=== PATIENT | male | born 1950 | race Two or more races ===

== ENCOUNTER 2019-05-12 22:34 | Inpatient (IN) | payer MEDICARE ==
[~2019-05-12] VITALS: Ht 172.7 cm; Wt 69.9 kg
[2019-05-12 22:40] VITALS: BP 118/64
--- NOTE | 2019-05-12 22:40 | NUR ---
ED Nurse Note: Pt brought into ED by GERARD PASTRANA from home for ALOC. Pt was found at his friends house unresponsive with oxygen saturation at 73% on RA. EMS notes BS of 275 on scene. Pt was arousable to painful stimuli on scene. Pt is aaox3 upon ED arrival and oxygen saturation is 96% on nonrebreather. Pt is able to answer questions, but is drowsy. Pt connected to bus monitor. Will continue to monitor.
[2019-05-12] MEDS ORDERED: Ipratropium 0.02% Inh Soln 2.5ml UD HHN ONE (22:45)
[2019-05-12] MEDS ORDERED: Albuterol ud Inhalation HHN ONE (22:45)
[2019-05-12 23:13] LABS: BASOPHILS % (AUTO) 4.9 % (0.0-2.0); EOSINOPHILS % (AUTO) 1.1 % (0.0-3.0); HEMATOCRIT 48.9 % (42.0-52.0); HEMOGLOBIN 15.6 G/DL (14.2-18.0); LYMPHOCYTES % (AUTO) 25.3 % (20.0-45.0); MEAN CORPUSCULAR VOLUME 93 FL (80-99); MONOCYTES % (AUTO) 6.4 % (1.0-10.0); NEUTROPHILS % (AUTO) 62.3 % (45.0-75.0); PLATELET COUNT 194 K/UL (150-450); RED BLOOD COUNT 5.28 M/UL (4.70-6.10); RED CELL DISTRIBUTION WIDTH 13.4 % (11.6-14.8); WHITE BLOOD COUNT 4.5 K/UL (4.8-10.8)
[2019-05-12 23:25] VITALS: BP 130/42
[2019-05-12 23:29] LABS: ANION GAP 15 mmol/L (5-15); BLOOD UREA NITROGEN 35 mg/dL (7-18); CALCIUM 9.3 MG/DL (8.5-10.1); CARBON DIOXIDE 23 MMOL/L (21-32); CHLORIDE 102 MMOL/L (98-107); CREATININE 2.2 MG/DL (0.55-1.30); POTASSIUM 4.2 MMOL/L (3.5-5.1); SODIUM 140 MMOL/L (136-145)
[2019-05-12 23:40] LABS: ALANINE AMINOTRANSFERASE 21 U/L (12-78); ALBUMIN 3.6 G/DL (3.4-5.0); ALBUMIN/GLOBULIN RATIO 0.9 (1.0-2.7); ALKALINE PHOSPHATASE 97 U/L (46-116); ASPARTATE AMINO TRANSFERASE 14 U/L (15-37); BILIRUBIN,TOTAL 0.2 MG/DL (0.2-1.0)
[2019-05-13] VITALS (7 sets, daily range): BP systolic 119–149; BP diastolic 57–82
--- NOTE | 2019-05-13 00:15 | NUR ---
ED Nurse Note: Pt taken off nonrebreather at this time, vital signs are stable. Pt oxygen saturation is 98-100% on RA. Will continue to monitor respiratory status. Breathing is normal and nonlabored.
[2019-05-13] MEDS ORDERED: Enoxaparin 80mg Inj SUBQ ONE (00:30)
[2019-05-13 00:34] LABS: APPEARANCE,URINE CLEAR; BILIRUBIN, URINE NEGATIVE (NEGATIVE); COLOR,URINE PALE YELLOW; GLUCOSE, URINE (UA) 2+ (NEGATIVE); KETONES,URINE NEGATIVE (NEGATIVE); LEUKOCYTE ESTERASE ,URINE 1+ (NEGATIVE); NITRITE,URINE NEGATIVE (NEGATIVE); PH,URINE 5 (4.5-8.0); PROTEIN,URINE 3+ (NEGATIVE); UROBILINOGEN,URINE NORMAL MG/DL (0.0-1.0)
--- NOTE | 2019-05-13 00:53 | Emergency Room Report ---
History of Present Illness General Chief Complaint: Altered Mental Status Source: Patient, EMS Present Illness HPI Is a 68-year-old male with a history of CVA and diabetes. He presents with chief complaint of altered mental status and hypoxia. He was at his friend's house and said he had 1 alcoholic drink. He became unresponsive and friend called 911. EMS said that he was unresponsive and by the time they get into the ambulance, he woke up. There was no seizure activity. He was noted to be hypoxic. Patient denies being short of breath. Denies any chest pain. No history of seizure. Never had this problem before. He was unresponsive for unknown amount of time. Allergies: 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 Immunizations: other Reviewed Nursing Documentation: PMH: Agreed; PSxH: Agreed Nursing Documentation-PMH Hx Diabetes: Yes Hx Cerebrovascular Accident: Yes Review of Systems Eye: Denies: eye pain, blurred vision ENT: Denies: ear pain, nose congestion, throat swelling Respiratory: Denies: cough, shortness of breath Cardiovascular: Denies: chest pain, palpitations Gastrointestinal: Denies: abdominal pain, diarrhea, nausea, vomiting Musculoskeletal: Denies: back pain, joint pain Skin: Denies: rash Neurological: Denies: headache, numbness Endocrine: Denies: increased thirst, increased urine Hematologic/Lymphatic: Denies: easy bruising All Other Systems: negative except mentioned in HPI Physical Exam Vital Signs Date Time Temp Pulse Resp B/P (MAP) Pulse Ox O2 Delivery O2 Flow Rate FiO2 05/12/19 22:35 98.2 72 20 118/64 (82) 96 Room Air 05/12/19 22:40 15.0 05/12/19 23:04 100 Vitals with hypoxia Sp02 EP Interpretation: reviewed, normal General Appearance: well appearing, no apparent distress, alert Head: normocephalic, atraumatic Eyes: bilateral eye PERRL, bilateral eye EOMI ENT: hearing grossly normal, normal pharynx Neck: full range of motion, supple, no meningismus Respiratory: chest non-tender, lungs clear, normal breath sounds Cardiovascular #1: regular rate, rhythm, no murmur Gastrointestinal: normal bowel sounds, non tender, no mass, no organomegaly, no bruit, non-distended Musculoskeletal: back normal, normal range of motion, gait/station normal Neurologic: alert, oriented x3 Psychiatric: mood/affect normal Procedures Critical Care Time Critical Care Time Critical care is mandated in this patient who presented with acute respiratory failure. Patient require my urgent intervention to attenuate the risks of respiratory collapse which may lead to cardiovascular collapse and . Critical care time is 35 minutes excluding any reportable procedure. Critical care time included evaluation, multiple reevaluation, looking at old charts, interpreting laboratory and diagnostic data, discussing case with patient and family and consultants, and charting. Medical Decision Making Diagnostic Impression: Primary Impression: Altered mental status Qualified Codes: R41.82 - Altered mental status, unspecified Additional Impressions: Acute respiratory failure with hypoxia Hypertension Qualified Codes: I10 - Essential (primary) hypertension CKD (chronic kidney disease) Qualified Codes: N18.9 - Chronic kidney disease, unspecified ER Course Presents with acute respiratory failure with hypoxia. He also was unresponsive on amount of time. He is back to baseline now. He has had a seizure, TIA/CVA, CO2 necrosis to name a few. He has been off of oxygen for the last hour and room air oxygenation has been 98 to 99%. Labs unremarkable. Chest x-ray is negative. CT head is negative. His creatinine is elevated. This preclude him from getting a CT chest to rule out PE. I gave him a dose of Lovenox here. He may have further work-up with a VQ scan in the morning. Patient is approved for admission here. I contacted Dr. Tse for admission. EKG Diagnostic Results Rate: normal Rhythm: NSR ST Segments: no acute changes Rhythm Strip Diag. Results EP Interpretation: yes Rate: 68 Rhythm: NSR, no PVC's, no ectopy Chest X-Ray Diagnostic Results Chest X-Ray Diagnostic Results : Chest X-Ray Ordered: Yes # of Views/Limited/Complete: 1 View Indication: Shortness of Breath EP Interpretation: Yes Interpretation: no consolidation, no effusion, no pneumothorax, no acute cardiopulmonary disease Impression: No acute disease Electronically Signed by: Nicola Peterson MD CT/MRI/US Diagnostic Results CT/MRI/US Diagnostic Results : Imaging Test Ordered: CT head Impression Negative per radiologist Last Vital Signs Date Time Temp Pulse Resp B/P (MAP) Pulse Ox O2 Delivery O2 Flow Rate FiO2 05/12/19 23:25 98.2 73 16 130/42 100 Non-Rebreather 15.0 100 Status: improved Disposition: ADMITTED INPATIENT Condition: Serious Referrals: NOT CHOSEN IPA/,REFERRING (PCP) Nicola Peterson MD May 13, 2019 00:53
--- NOTE | 2019-05-13 02:30 | NUR ---
ED Nurse Note: Report given to SHAHRAM Allan.
--- NOTE | 2019-05-13 02:41 | NUR ---
ED Nurse Note: Pt stable for transfer to unit at this time per ERMD. Pt is awake and alertx4, breathing is normal and unlabored, oxygen saturation is 99% on RA. No acute distress noted. Pt taken to floor via gurney by 2 RN, connected to air sampling and monitoring. Pt belongings sent with pt.
--- NOTE | 2019-05-13 02:45 | NUR ---
NURSE NOTES: Receieved report from Sonali RN. Patient is alert oriented x 4. No signs of distress. No SOB noted. Able to verbalize needs. R FA 22g SL.
--- NOTE | 2019-05-13 03:02 | Diagnostic Imaging Report ---
Indications: Altered mental status Technique: Spiral acquisitions obtained through the brain. Angled axial and coronal 5 x 5 mm slices were reconstructed. Total dose length product 1179 mGycm. CTDI vol(s) 53 mGy. Dose reduction achieved using automated exposure control Comparison: None. Findings: There is age-related enlargement of the ventricles. The extra-axial CSF spaces are more normal in caliber. There is periventricular deep white matter low-attenuation. Otherwise normal lai-white differentiation. There is an old lacunar infarct in the right side of the panda. No acute intracranial hemorrhage or edema. No mass effect nor midline shift. The calvarium is intact. The visualized orbits and sinuses are unremarkable. Impression: Ventriculomegaly, probably due to central volume loss. However this is out of proportion to the degree of cortical atrophy, the possibility of hydrocephalus should also be considered Periventricular deep white matter low-attenuation, probably due to chronic microvascular ischemic changes, but could also indicate transependymal flow of CSF in the setting of hydrocephalus Old right pontine lacunar infarct Negative for acute intracranial bleed or mass effect This agrees with the preliminary interpretation provided overnight by [facility]erad[facility] service. The CT scanner at [facility] is accredited by the [employer] and the scans are performed using protocols designed to limit radiation exposure to as low as reasonably achievable to attain images of sufficient resolution adequate for diagnostic evaluation.
--- NOTE | 2019-05-13 03:20 | NUR ---
NURSE NOTES: Called and left message for Dr. Laguerre. Awaiting for call back. Will continue to monitor patient
[2019-05-13] MEDS ORDERED: [UNRECOGNIZED DRUG - OTHER] (03:23)
[2019-05-13] MEDS ORDERED: vitamin D (03:23)
[2019-05-13] MEDS ORDERED: BENAZEPRIL (03:23)
[2019-05-13] MEDS ORDERED: magnesium (03:23)
[2019-05-13] MEDS ORDERED: vitamin e (03:23)
--- NOTE | 2019-05-13 04:27 | NUR ---
NURSE NOTES: Called and left message for Dr. Laguerre. Awaiting for call back. Will continue to monitor patient.
--- NOTE | 2019-05-13 04:50 | NUR ---
NURSE NOTES: Received new orders. Will note and carry out.
[2019-05-13 06:05] LABS: BASOPHILS % (AUTO) 0.7 % (0.0-2.0); HEMATOCRIT 43.5 % (42.0-52.0); HEMOGLOBIN 14.8 G/DL (14.2-18.0); LYMPHOCYTES % (AUTO) 12.2 % (20.0-45.0); MEAN CORPUSCULAR VOLUME 91 FL (80-99); MONOCYTES % (AUTO) 4.5 % (1.0-10.0); NEUTROPHILS % (AUTO) 81.5 % (45.0-75.0); PLATELET COUNT 163 K/UL (150-450); RED CELL DISTRIBUTION WIDTH 12.2 % (11.6-14.8); WHITE BLOOD COUNT 11.6 K/UL (4.8-10.8)
[2019-05-13 06:15] LABS: ANION GAP 7 mmol/L (5-15); BLOOD UREA NITROGEN 32 mg/dL (7-18); CALCIUM 9.3 MG/DL (8.5-10.1); CARBON DIOXIDE 29 MMOL/L (21-32); CHLORIDE 105 MMOL/L (98-107); POTASSIUM 5.1 MMOL/L (3.5-5.1); SODIUM 140 MMOL/L (136-145)
--- NOTE | 2019-05-13 07:05 | NUR ---
HAND-OFF: Report given to Tan Guerra Pt in stable conditon.
--- NOTE | 2019-05-13 07:19 | NUR ---
RADIOLOGY DEPT., LATE ENTRY. CHEST X-RAY DONE 05/12 AT 22:43HRS. -.P.DYE
--- NOTE | 2019-05-13 08:19 | NUR ---
NURSE NOTES: received pt in the bed, awake, alert, oriented, vital signs stable, no co pain, no SOB, skin warm and dry to touch, intact, tolerate diet well, bed in low position, call light within reach.
[2019-05-13] MEDS: Enoxaparin 40mg Inj SUBQ SCH (08:53)
--- NOTE | 2019-05-13 09:10 | Diagnostic Imaging Report ---
Indication: Shortness of breath Technique: One view of the chest Comparison: none Findings: Lungs and pleural spaces are clear. Heart size is normal. Impression: No acute process
--- NOTE | 2019-05-13 11:03 | NUR ---
NM Lung V/Q scan complete.
[2019-05-13] MEDS: NovoLOG Insulin Flexpen SUBQ SCH ×3 (11:30→21:07)
--- NOTE | 2019-05-13 12:07 | NUR ---
NURSE NOTES: pt resting, VQ scan done, vital signs stable, no co pain, continue monitoring.
[2019-05-13] MEDS: HYDROcodone/Acetamin 5/325 tab ORAL PRN (13:49)
--- NOTE | 2019-05-13 13:59 | NUR ---
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 98.2 HR 72 RR 20 B/P 118/64 NRM FIO2 100% WBC 4.5 BUN 35 CR 2.2 BNP 245 PH 7.28 PCO2 43.5 PO2 57.7 HCO3 20.1 O2 SAT 86.6% URINE TOX+ THC CT- NEGATIVE IS: ALB HHN ATROVENT HHN LOVENOX SUBC ADMITTED TO ICU@ 0241 ICU STATUS DCP PENDING HOSPITAL
--- NOTE | 2019-05-13 14:35 | Consultation ---
Consult Note Consult Note I was asked to evaluate Mr. Leticia Lindsey at the request of Dr. Tse for elevated creatinine. Patient is a 68-year-old male with a history of previous CVA and history of diabetes mellitus who presents to our emergency room here at [facility] with altered level of consciousness and hypoxia. After initial evaluation the patient was admitted for above problem. I visited the patient in his room in [address]. On questioning the patient he denied having episodes as such in the past. Denies any chest pain seizure disorder. Allergies are negative. Past history is significant for stroke and diabetes mellitus. On examination vital signs stable patient alert and oriented and responds to all the questions appropriately. Data reviewed. Serum creatinine is elevated and the patient has alcohol and THC in the urine. . Assessment/Plan Acute encephalopathy is most likely metabolic due to marijuana and alcohol. Elevated creatinine most likely chronic kidney disease as a result of history of hypertension and diabetes mellitus. Acute respiratory failure with hypoxia on presentation to emergency room. CO2 retention DM Proteinuria: Nephropathy. Optimize pulmonary status Keep BP and BS in check Avoid nephrotoxics per orders Jose Luis Lin MD May 13, 2019 14:35
--- NOTE | 2019-05-13 14:42 | History & Physical ---
History of Present Illness General Reason for Hospitalization: Altered Mental Status Present Illness Allergies: Coded Allergies: No Known Allergies (Unverified , 05/12/19) Medication History Miscellaneous Medications [benazopril], (Reported) [magnesium], (Reported) [propra], (Reported) [vitamin D], (Reported) [vitamin e], (Reported) Patient History Healthcare decision maker Resuscitation status Full Code Advanced Directive on File Review of Systems Review of Symptoms General ROS: no weight loss or fever Psychological ROS: no depression or mood changes, no memory loss Ophthalmic ROS: no visual changes or eye irritation ENT ROS: no nasal congestion, hearing loss, dizziness Allergy and Immunology ROS: no allergic symptoms or urticaria Hematological and Lymphatic ROS: no swollen glands, unusual bleeding or bruising Endocrine ROS: no polyuria, polydipsia, weight changes, temperature intolerance Respiratory ROS: no cough, shortness of breath, or wheezing Cardiovascular ROS: no chest pain or dyspnea on exertion Gastrointestinal ROS: denies abdominal pain, bright red blood in stool. Musculoskeletal ROS: no myalgias or arthralgias Neurological ROS: no TIA or stroke symptoms Dermatological ROS: no new or changing skin lesions, rashes or pruritis Physical Exam Physical Exam General appearance: alert, cooperative, no distress, appears stated age Head: Normocephalic, without obvious abnormality, atraumatic Eyes: conjunctivae/corneas clear. PERRL, EOM's intact. Fundi benign Throat: Lips, mucosa, and tongue normal. Teeth and gums normal Neck: supple, symmetrical, trachea midline, no adenopathy, thyroid: not enlarged, symmetric, no tenderness/mass/nodules, no carotid bruit and no JVD Lungs: clear to auscultation bilaterally Heart: regular rate and rhythm, S1, S2 normal, no murmur, click, rub or gallop Abdomen: soft, non-tender. Bowel sounds normal. No masses, no organomegaly Extremities: extremities normal, atraumatic, no cyanosis or edema Pulses: 2+ and symmetric Skin: Skin color, texture, turgor normal. No rashes or lesions Neurologic: Grossly normal Last 24 Hour Vital Signs Date Time Temp Pulse Resp B/P (MAP) Pulse Ox O2 Delivery O2 Flow Rate FiO2 05/13/19 14:19 98.5 05/13/19 12:00 98.5 57 16 132/76 (94) 99 05/13/19 11:27 54 05/13/19 09:00 Room Air 05/13/19 08:00 98.1 77 16 119/57 (77) 98 05/13/19 08:00 69 05/13/19 04:30 Room Air 05/13/19 04:10 Room Air 05/13/19 04:00 98.2 60 139/73 (95) 05/13/19 03:26 79 05/13/19 03:10 98.0 77 138/76 (96) 05/13/19 02:57 81 05/13/19 02:41 98.5 75 16 135/66 99 Room Air 05/13/19 00:15 98.2 70 16 144/60 100 Room Air 05/12/19 23:25 98.2 73 16 130/42 100 Non-Rebreather 15.0 100 05/12/19 23:04 69 21 97 Non-Rebreather 15.0 100 66 25 96 05/12/19 22:40 72 20 Non-Rebreather 15.0 05/12/19 22:40 98.2 72 20 118/64 96 Non-Rebreather 15.0 05/12/19 22:35 98.2 72 20 118/64 (82) 96 Room Air Intake and Output 05/12/19 05/13/19 19:00 07:00 Intake Total 30 ml Balance 30 ml Intake Oral 30 ml Laboratory Tests Test 05/12/19 22:43 05/12/19 23:00 05/13/19 00:18 05/13/19 06:00 Arterial Blood pH 7.282 (7.350-7.450) Arterial Blood Partial Pressure CO2 43.5 mmHg (35.0-45.0) Arterial Blood Partial Pressure O2 57.7 mmHg (75.0-100.0) L Arterial Blood HCO3 20.1 mmol/L (22.0-26.0) L Arterial Blood Oxygen Saturation 86.6 % (95-100) *L Arterial Blood Base Excess -6.5 (-2-2) L Scotty Test Positive White Blood Count 4.5 K/UL (4.8-10.8) L 11.6 K/UL (4.8-10.8) #H Red Blood Count 5.28 M/UL (4.70-6.10) 4.80 M/UL (4.70-6.10) Hemoglobin 15.6 G/DL (14.2-18.0) 14.8 G/DL (14.2-18.0) Hematocrit 48.9 % (42.0-52.0) 43.5 % (42.0-52.0) Mean Corpuscular Volume 93 FL (80-99) 91 FL (80-99) Mean Corpuscular Hemoglobin 29.5 PG (27.0-31.0) 30.8 PG (27.0-31.0) Mean Corpuscular Hemoglobin Concent 31.9 G/DL (32.0-36.0) L 34.0 G/DL (32.0-36.0) Red Cell Distribution Width 13.4 % (11.6-14.8) 12.2 % (11.6-14.8) Platelet Count 194 K/UL (150-450) 163 K/UL (150-450) Mean Platelet Volume 8.7 FL (6.5-10.1) 7.1 FL (6.5-10.1) Neutrophils (%) (Auto) 62.3 % (45.0-75.0) 81.5 % (45.0-75.0) H Lymphocytes (%) (Auto) 25.3 % (20.0-45.0) 12.2 % (20.0-45.0) L Monocytes (%) (Auto) 6.4 % (1.0-10.0) 4.5 % (1.0-10.0) Eosinophils (%) (Auto) 1.1 % (0.0-3.0) 1.0 % (0.0-3.0) Basophils (%) (Auto) 4.9 % (0.0-2.0) H 0.7 % (0.0-2.0) Sodium Level 140 MMOL/L (136-145) 140 MMOL/L (136-145) Potassium Level 4.2 MMOL/L (3.5-5.1) 5.1 MMOL/L (3.5-5.1) Chloride Level 102 MMOL/L (98-107) 105 MMOL/L (98-107) Carbon Dioxide Level 23 MMOL/L (21-32) 29 MMOL/L (21-32) Anion Gap 15 mmol/L (5-15) 7 mmol/L (5-15) Blood Urea Nitrogen 35 mg/dL (7-18) H 32 mg/dL (7-18) H Creatinine 2.2 MG/DL (0.55-1.30) H 2.0 MG/DL (0.55-1.30) H Estimat Glomerular Filtration Rate 30.1 mL/min (>60) 33.6 mL/min (>60) Glucose Level 258 MG/DL (74-106) H 110 MG/DL (74-106) #H Calcium Level 9.3 MG/DL (8.5-10.1) 9.3 MG/DL (8.5-10.1) Total Bilirubin 0.2 MG/DL (0.2-1.0) Aspartate Amino Transf (AST/SGOT) 14 U/L (15-37) L Alanine Aminotransferase (ALT/SGPT) 21 U/L (12-78) Alkaline Phosphatase 97 U/L (46-116) Troponin I 0.023 ng/mL (0.000-0.056) Pro-B-Type Natriuretic Peptide 245 pg/mL (0-125) H Total Protein 7.4 G/DL (6.4-8.2) Albumin 3.6 G/DL (3.4-5.0) Globulin 3.8 g/dL Albumin/Globulin Ratio 0.9 (1.0-2.7) L Serum Alcohol 7 mg/dL Urine Color Pale yellow Urine Appearance Clear Urine pH 5 (4.5-8.0) Urine Specific [place] 1.020 (1.005-1.035) Urine Protein 3+ (NEGATIVE) H Urine Glucose (UA) 2+ (NEGATIVE) H Urine Ketones Negative (NEGATIVE) Urine Blood Negative (NEGATIVE) Urine Nitrite Negative (NEGATIVE) Urine Bilirubin Negative (NEGATIVE) Urine Urobilinogen Normal MG/DL (0.0-1.0) Urine Leukocyte Esterase 1+ (NEGATIVE) H Urine RBC 0-2 /HPF (0 - 0) H Urine WBC 0-2 /HPF (0 - 0) Urine Squamous Epithelial Cells None /LPF (NONE/OCC) Urine Bacteria None /HPF (NONE) Urine Opiates Screen Negative (NEGATIVE) Urine Barbiturates Screen Negative (NEGATIVE) Phencyclidine (PCP) Screen Negative (NEGATIVE) Urine Amphetamines Screen Negative (NEGATIVE) Urine Benzodiazepines Screen Negative (NEGATIVE) Urine Cocaine Screen Negative (NEGATIVE) Urine Marijuana (THC) Screen Positive (NEGATIVE) H Height (Feet): 5 Height (Inches): 8.00 Weight (Pounds): 154 Medications Current Medications Medications (Trade) Dose Ordered Sig/Ruddy Route PRN Reason Start Time Stop Time Status Last Admin Dose Admin Acetaminophen/ Hydrocodone Bitart ([place] 5/325) 1 tab Q6H PRN ORAL For Pain 05/13/19 13:40 05/20/19 13:39 05/13/19 13:49 Dextrose (Dextrose 50%) 25 ml Q30M PRN IV Hypoglycemia 05/13/19 07:15 06/12/19 07:14 Dextrose (Dextrose 50%) 50 ml Q30M PRN IV Hypoglycemia 05/13/19 07:15 06/12/19 07:14 Enoxaparin Sodium (Lovenox) 40 mg DAILY SUBQ 05/13/19 09:00 06/12/19 08:59 05/13/19 08:53 Insulin Aspart (NovoLOG) BEFORE MEALS AND HS SUBQ 05/13/19 11:30 06/12/19 11:29 Assessment/Plan Assessment/Plan: H&P IM Covering for Dr. Les Chacon RFA: REsp failure and ams DOS: 05/13/19 HPI Is a 68-year-old male with a history of CVA and diabetes and graves disease, He presents with chief complaint of altered mental status and hypoxia. He was at his friend's house and said he had 1 alcoholic drink. He became unresponsive and friend called 911. EMS said that he was unresponsive and by the time they get into the ambulance, he woke up. There was no seizure activity. He was noted to be hypoxic. Patient denies being short of breath. Denies any chest pain. No history of seizure. Never had this problem before. He was unresponsive for unknown amount of time. 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 Immunizations: other Reviewed Nursing Documentation: PMH: Agreed; PSxH: Agreed Nursing Documentation-PMH Hx Diabetes: Yes Hx Cerebrovascular Accident: Yes ROS (review of systems): Constitutional: No fever, no chills, no night sweats, no fatigue Skin: No rashes, lumps, itchiness, dryness HEENT: No LUCIANO, ear ache, visual changes, double vision, nosebleeds Breasts: No lumps, pain, discharge Pulmonary: No cough, sputum, shortness of breath, coughing up blood Cardiovascular: No chest pain, tightness, palpitations, syncope, PND GI: No nausea, vomiting, diarrhea, melena, hematochezia, change in appetite, : No dysuria, frequency, urgency, urinary incontinence, foamy urine Musculoskeletal: No joint swelling or muscle pain, trauma, back pain Neurologic: No dizziness, fainting, seizures, changes in smell or taste Psychiatric: No nervousness, stress, or depression, anxiety, hallucinations Endocrine: No weight change, heat or cold intolerance, tremor, insomnia Physical Exam: Vitals: reviewed General: NAD HEENT: nc, at Neck: supple Chest: clear breath sounds bilaterally Cardiovascular: RRR, no s3, s4 Abdomen: soft, nontender, nd Extremities: no cce, normal range of motion Neuro: alert and oriented Labs: reviewed Imaging: noted Assessment and Recs: # Altered mental status - has periventricular deep white matter low-attenuation , probably due to chronic microvascular ischemic changes, but could also indicate transependymal flow of CSF i the setting of hydrocephalus. Old right pontine lacunar infarct --> recommend imaging and ct brain results as per above --> labs have been reviewed --> neuro eval pnr # Acute respiratory failure. --> cxr completed is neg --> now more comfortable, is on o2 --> less likely PE, without tachycardia, no major tachypnea --> per pulm # Hypertension --> prn antihtn meds # Alden on Ckd --> as per renal Appreciate content management consultant care and dw RN [facility] Hospital declaration INPATIENT level of care is warranted for this patient because patient is a 89 year old with who presents with suspicion of . I have a high level of concern because . Patient is at high risk for . Plan of care/treatment include . Patient care is expected to be greater than 2 midnights. OBSERVATION level of care is warranted for this patient. Patient is a 89 year old with who presents with . Patient will be admitted for 1 midnight, but if additional night(s) is/are necessary, patient will be converted to inpatient status for the entire hospitalization Disposition: Once the patient is stable to leave the hospital, I anticipate the patient will likely be discharged to the following environment: Estimated discharge date: I spent 70 minutes on this patient's case, and minutes was dedicated to counseling and/or care coordination. MIPS (Merit-based Incentive Payment System) Applicable CPT: 54408, 62660 CHECK ALL THAT ARE MET: Measure #5 (CHF): All ages. Prescribe CHARLENE/ARB upon discharge for patients with left ventricular systolic dysfunction. If not, the reason is clearly documented in the medical chart. Measure #8 (CHF): All ages. Prescribe a beta adelia upon discharge for patients with left ventricular systolic dysfunction. If not, the reason is clearly documented in the medical chart. Measure #47 Advance care plan or surrogate decision maker documented in the medical record. Measure #130 The provider has documented, updated, or reviewed the patients current medication list and has documented it in the patients note. Measure #374 (All): Send report to referring provider. Measure #407(Sepsis due to MSSA bacteremia): Age 18+ Patient treated with a beta-lactam antibiotic (Nafcillin, Oxacillin or Cefazolin) as definitive therapy. MEDICAL COMPLEXITY High complexity medical decision making (need 2/3 categories) Problem - need 4 points Acute/new problem with new plan for workup (4 points, 1 max) Acute/new problem without additional workup (3 points, 1 max) Unstable chronic problem actively being managed (2 point each, 2 max) Stable chronic problem actively being managed (1 point each, 2 max) Self-limited/transient process (constipation, muscle ache, etc) (1 point each , 2 max) Data - need 4 points Reviewed labs/imaging studies (1 points, 2 max) Independent review of imaging (EKG, xrays, etc) (2 points, 2 max) Discussed case with consult/other MD/RN (2 points, 2 max) High Risk - qualify if have one of the following: Severe exacerbation of acute problem, acute mental status change, IV narcotics , monitoring drug levels (vancomycin, INR, tacrolimus etc) Shahid Laguerre MD May 13, 2019 14:42
--- NOTE | 2019-05-13 14:45 | Consultation ---
DATE OF CONSULTATION: 05/13/2019 PULMONARY CONSULTATION CONSULTING PHYSICIAN: Pedor Witt M.D. REFERRING PHYSICIAN: Les Tse M.D. This is a 68-year-old male who was admitted to the telemetry for acute hypoxia. REASON FOR CONSULTATION: Hypoxemia. HISTORY OF PRESENT ILLNESS: This is a 68-year-old male who presented with altered mental status and hypoxia his friend's house and reportedly had 1 alcoholic drink. He was found to have marijuana. He was unresponsive. He was brought to the hospital. There was no seizure activity. The patient was found to be hypoxic. I have been asked to consult. PAST HISTORY: Notable for previous CVA/TIA, diabetes mellitus. FAMILY HISTORY: Noncontributory. SURGICAL HISTORY: None. SOCIAL HISTORY: Admits to smoking and tobacco and alcohol usage. The patient at this time is poorly responsive; however, is able to respond, but is unreliable historian. PHYSICAL EXAMINATION: GENERAL: Reveals a 68-year-old male. HEENT: Unremarkable. LUNGS: Clear breath sounds bilaterally with normal heart sounds. ABDOMEN: Soft. EXTREMITIES: There is no edema. VITAL SIGNS: Blood pressure 130/70, heart rate 64, respirations 18, he is afebrile, currently O2 sats are 98% on room air. IMAGING STUDIES AND LABORATORY DATA: Head CT was done overnight, which shows no evidence of acute pathology. The patient also underwent a chest x-ray that was normal without any evidence of acute pathology. A CT chest was not done because he had elevated creatinine. Other lab testing is remarkable only for white count 11,000. Creatinine of 2, glucose is 110. Toxicology is positive for marijuana. Urinalysis negative. ABG shows pH 7.28, pCO2 43, pO2 57. IMPRESSION: 1. Hypoxemia. 2. Altered mental status. 3. Marijuana use. 4. Diabetes mellitus. 5. Previous CVA. DISCUSSION: Admit to the hospital. We will order a V/Q scan. Agree with empiric treatment at this point in time. I do not see a clear focus of infection. We will follow as furniture inspector. Thank you for the consultation. Pedro Witt M.D. DR: JUDITH JOB#: [id number] CC:
--- NOTE | 2019-05-13 15:45 | Diagnostic Imaging Report ---
Indications: Abnormal chest sounds Technique: IV administration 5.5 mCi 99m technetium macroaggregated albumin. Images obtained over the lungs in multiple projections. Previously, patient inhaled 44 mCi aerosolized 99M technetium DTPA. Images obtained over the lungs in multiple projections Comparison: No comparison lung scans. Reference made to chest radiograph 05/12/2019 Findings: Aerosol images demonstrate slightly heterogeneous tracer distribution. Perfusion images also demonstrate tracer distribution which is somewhat heterogeneous although less so than on the aerosol images. No segmental or subsegmental perfusion defects. No evidence of aerosol perfusion mismatch Impression: Findings deemed low probability for pulmonary embolus
[2019-05-13] MEDS: Docusate 100mg cap ORAL SCH (17:16)
--- NOTE | 2019-05-13 19:29 | NUR ---
HAND-OFF: Report given to PATRICE OMALLEY, no distress at this time.
--- NOTE | 2019-05-13 19:30 | NUR ---
NURSE NOTES: Late entry. Received patient from SHAHRAM Llanos. Patient is aaox4, vss, with no acute distress. Patient is cooperative and clean. Patient is on phototypesetting equipment monitor, IV site is right FA 22g and skin is intact. Patient is on phototypesetting equipment monitor, room air, and patient voids independently. Bed at its lowest position, call light in reach and x3 bed rails are up. Will continue to monitor.
[2019-05-14] VITALS: BP 142/75
[2019-05-14] MEDS: HYDROcodone/Acetamin 5/325 tab ORAL PRN (00:25)
[2019-05-14 04:00] VITALS: BP 153/75
[2019-05-14 04:46] LABS: BASOPHILS % (AUTO) 0.7 % (0.0-2.0); EOSINOPHILS % (AUTO) 4.5 % (0.0-3.0); HEMATOCRIT 39.6 % (42.0-52.0); HEMOGLOBIN 13.4 G/DL (14.2-18.0); LYMPHOCYTES % (AUTO) 34.1 % (20.0-45.0); MEAN CORPUSCULAR VOLUME 90 FL (80-99); MONOCYTES % (AUTO) 5.3 % (1.0-10.0); NEUTROPHILS % (AUTO) 55.4 % (45.0-75.0); PLATELET COUNT 148 K/UL (150-450); RED BLOOD COUNT 4.39 M/UL (4.70-6.10); RED CELL DISTRIBUTION WIDTH 12.1 % (11.6-14.8); WHITE BLOOD COUNT 6.2 K/UL (4.8-10.8)
[2019-05-14 05:13] LABS: ALANINE AMINOTRANSFERASE 21 U/L (12-78); ALBUMIN 3.2 G/DL (3.4-5.0); ALBUMIN/GLOBULIN RATIO 0.9 (1.0-2.7); ALKALINE PHOSPHATASE 85 U/L (46-116); ANION GAP 8 mmol/L (5-15); ASPARTATE AMINO TRANSFERASE 13 U/L (15-37); BILIRUBIN,TOTAL 0.2 MG/DL (0.2-1.0); BLOOD UREA NITROGEN 29 mg/dL (7-18); CALCIUM 8.6 MG/DL (8.5-10.1); CARBON DIOXIDE 27 MMOL/L (21-32); CHLORIDE 103 MMOL/L (98-107); CHOLESTEROL 123 MG/DL (< 200); CREATININE 1.9 MG/DL (0.55-1.30); GAMMA GLUTAMYL TRANSPEPTIDASE 23 U/L (5-85); HDL CHOLESTEROL 43 MG/DL (40-60); POTASSIUM 4.6 MMOL/L (3.5-5.1); SODIUM 138 MMOL/L (136-145); TRIGLYCERIDES 61 MG/DL (30-150)
[2019-05-14] MEDS: NovoLOG Insulin Flexpen SUBQ SCH ×4 (06:30→21:00)
[2019-05-14] MEDS ORDERED: PROPRANOLOL HCL10 MG ORAL (06:32)
--- NOTE | 2019-05-14 07:30 | NUR ---
HAND-OFF: Report given to Romi Forte RN.
--- NOTE | 2019-05-14 07:35 | NUR ---
NURSE NOTES: Report received from Bull OMALLEY.Pt awake alert sitting up on bed eating breakfast,noted no resp distress,on RA denies any discomfort or pain,SR on the monitor,pt uses urinal to void to clear yellow urine,skin warm and dry ,IV Heplock to RFA intact ,SR up x2 HOB elevated,call light within reach at bedside,bed lock in lowest position,will continue with plans of care.
[2019-05-14 08:00] VITALS: BP 147/77
--- NOTE | 2019-05-14 09:06 | Nephrology Progress Note ---
Assessment/Plan Problem List: (1) Diabetic nephropathy (2) HTN (hypertension) (3) Chronic kidney disease (CKD) Assessment: GFR 35 (4) Acute metabolic encephalopathy Assessment Acute encephalopathy is most likely metabolic due to marijuana and alcohol. Elevated creatinine most likely chronic kidney disease as a result of history of hypertension and diabetes mellitus. Acute respiratory failure with hypoxia on presentation to emergency room. CO2 retention DM Proteinuria: Nephropathy. Plan add allopurinol- adjust bp meds- Optimize pulmonary status Keep BP and BS in check Avoid nephrotoxics per orders Subjective ROS Limited/Unobtainable: No Constitutional: Reports: malaise Objective Objective Last 24 Hour Vital Signs Date Time Temp Pulse Resp B/P (MAP) Pulse Ox O2 Delivery O2 Flow Rate FiO2 05/14/19 04:00 60 05/14/19 04:00 98.1 60 20 153/75 (101) 97 05/14/19 00:55 98.8 05/14/19 00:00 Room Air 05/14/19 00:00 97.7 63 20 142/75 (97) 98 05/14/19 00:00 60 05/13/19 21:00 Room Air 05/13/19 21:00 Room Air 05/13/19 20:00 61 05/13/19 20:00 98.2 65 20 149/82 (104) 100 05/13/19 16:00 98.8 65 16 135/70 (91) 97 05/13/19 15:31 53 05/13/19 12:00 98.5 57 16 132/76 (94) 99 05/13/19 11:27 54 Intake and Output 05/13/19 05/14/19 19:00 07:00 Intake Total 720 ml 240 ml Output Total 800 ml 300 ml Balance -80 ml -60 ml Intake Oral 720 ml 240 ml Output Urine Total 800 ml 300 ml # Voids 2 Current Medications Medications (Trade) Dose Ordered Sig/Ruddy Route PRN Reason Start Time Stop Time Status Last Admin Dose Admin Acetaminophen/ Hydrocodone Bitart ([place] 5/325) 1 tab Q6H PRN ORAL For Pain 05/13/19 13:40 05/20/19 13:39 05/14/19 00:25 Dextrose (Dextrose 50%) 25 ml Q30M PRN IV Hypoglycemia 05/13/19 07:15 06/12/19 07:14 Dextrose (Dextrose 50%) 50 ml Q30M PRN IV Hypoglycemia 05/13/19 07:15 06/12/19 07:14 Docusate Sodium (Colace) 100 mg TWICE A DAY ORAL 05/13/19 18:00 06/12/19 17:59 05/14/19 09:15 Enoxaparin Sodium (Lovenox) 40 mg DAILY SUBQ 05/13/19 09:00 06/12/19 08:59 05/14/19 09:16 Hydralazine HCl (Apresoline) 25 mg Q4H PRN ORAL bp over 160 syst 05/13/19 14:45 06/12/19 14:44 Hydralazine HCl (Apresoline) 25 mg Q8HR ORAL 05/14/19 08:00 06/13/19 07:59 05/14/19 09:32 Insulin Aspart (NovoLOG) BEFORE MEALS AND HS SUBQ 05/13/19 11:30 06/12/19 11:29 05/13/19 21:07 Pantoprazole (Protonix) 40 mg DAILY ORAL 05/14/19 09:00 06/13/19 08:59 05/14/19 09:15 Laboratory Tests 05/14/19 03:30: White Blood Count 6.2, Red Blood Count 4.39L, Hemoglobin 13.4L, Hematocrit 39.6L , Mean Corpuscular Volume 90, Mean Corpuscular Hemoglobin 30.4, Mean Corpuscular Hemoglobin Concent 33.7, Red Cell Distribution Width 12.1, Platelet Count 148L, Mean Platelet Volume 8.2, Neutrophils (%) (Auto) 55.4, Lymphocytes ( %) (Auto) 34.1, Monocytes (%) (Auto) 5.3, Eosinophils (%) (Auto) 4.5H, Basophils (%) (Auto) 0.7, Sodium Level 138, Potassium Level 4.6, Chloride Level 103, Carbon Dioxide Level 27, Anion Gap 8, Blood Urea Nitrogen 29H, Creatinine 1.9H, Estimat Glomerular Filtration Rate 35.6, Glucose Level 143H, Hemoglobin A1c 6.7H, Uric Acid 8.6H, Calcium Level 8.6, Phosphorus Level 3.0, Magnesium Level 1.7L, Total Bilirubin 0.2, Gamma Glutamyl Transpeptidase 23, Aspartate Amino Transf (AST/SGOT) 13L, Alanine Aminotransferase (ALT/SGPT) 21, Alkaline Phosphatase 85, Troponin I 0.046, C-Reactive Protein, Quantitative 3.2H, Pro-B- Type Natriuretic Peptide 231H, Total Protein 6.7, Albumin 3.2L, Globulin 3.5, Albumin/Globulin Ratio 0.9L, Triglycerides Level 61, Cholesterol Level 123, LDL Cholesterol 70, HDL Cholesterol 43, Cholesterol/HDL Ratio 2.9L, Folate 15.6, Thyroid Stimulating Hormone (TSH) < 0.010L, Free Thyroxine 1.10, Free Triiodothyronine 2.7 Height (Feet): 5 Height (Inches): 8.00 Weight (Pounds): 154 General Appearance: no apparent distress Cardiovascular: normal rate Respiratory/Chest: decreased breath sounds Abdomen: soft Jose Luis Lin MD May 14, 2019 09:06
[2019-05-14] MEDS: Docusate 100mg cap ORAL SCH ×2 (09:15→18:06)
[2019-05-14] MEDS: Enoxaparin 40mg Inj SUBQ SCH (09:16)
[2019-05-14] MEDS: HydrALAZINE 50mg tab ORAL SCH ×2 (09:32→15:15)
--- NOTE | 2019-05-14 10:55 | General Progress Note ---
Assessment/Plan Status: stable Assessment/Plan: IM Progress Note Covering for Dr. Les Chacon Assessment and Recs: # Altered mental status - has periventricular deep white matter low-attenuation , probably due to chronic microvascular ischemic changes, but could also indicate transependymal flow of CSF i the setting of hydrocephalus. Old right pontine lacunar infarct --> recommend imaging and ct brain results as per above --> labs have been reviewed --> neuro eval pnr # Acute respiratory failure. --> cxr completed is neg --> now more comfortable, is on o2 --> less likely PE, without tachycardia, no major tachypnea --> per pulm --> lung vq reviewed, low probability of pe # Hypertension --> prn antihtn meds # Alden on Ckd --> as per renal Appreciate bi consultant care and dw RN Subjective Allergies: Coded Allergies: No Known Allergies (Unverified , 05/12/19) Subjective 05/14: sdu, alert, lung vq reviewed, low probability of pe, on room air Objective Last 24 Hour Vital Signs Date Time Temp Pulse Resp B/P (MAP) Pulse Ox O2 Delivery O2 Flow Rate FiO2 05/14/19 09:32 147/77 05/14/19 04:00 60 05/14/19 04:00 98.1 60 20 153/75 (101) 97 05/14/19 00:55 98.8 05/14/19 00:00 Room Air 05/14/19 00:00 97.7 63 20 142/75 (97) 98 05/14/19 00:00 60 05/13/19 21:00 Room Air 05/13/19 21:00 Room Air 05/13/19 20:00 61 05/13/19 20:00 98.2 65 20 149/82 (104) 100 05/13/19 16:00 98.8 65 16 135/70 (91) 97 05/13/19 15:31 53 05/13/19 12:00 98.5 57 16 132/76 (94) 99 05/13/19 11:27 54 Intake and Output 05/13/19 05/14/19 19:00 07:00 Intake Total 720 ml 240 ml Output Total 800 ml 300 ml Balance -80 ml -60 ml Intake Oral 720 ml 240 ml Output Urine Total 800 ml 300 ml # Voids 2 Laboratory Tests 05/14/19 03:30: White Blood Count 6.2, Red Blood Count 4.39L, Hemoglobin 13.4L, Hematocrit 39.6L , Mean Corpuscular Volume 90, Mean Corpuscular Hemoglobin 30.4, Mean Corpuscular Hemoglobin Concent 33.7, Red Cell Distribution Width 12.1, Platelet Count 148L, Mean Platelet Volume 8.2, Neutrophils (%) (Auto) 55.4, Lymphocytes ( %) (Auto) 34.1, Monocytes (%) (Auto) 5.3, Eosinophils (%) (Auto) 4.5H, Basophils (%) (Auto) 0.7, Sodium Level 138, Potassium Level 4.6, Chloride Level 103, Carbon Dioxide Level 27, Anion Gap 8, Blood Urea Nitrogen 29H, Creatinine 1.9H, Estimat Glomerular Filtration Rate 35.6, Glucose Level 143H, Hemoglobin A1c 6.7H, Uric Acid 8.6H, Calcium Level 8.6, Phosphorus Level 3.0, Magnesium Level 1.7L, Total Bilirubin 0.2, Gamma Glutamyl Transpeptidase 23, Aspartate Amino Transf (AST/SGOT) 13L, Alanine Aminotransferase (ALT/SGPT) 21, Alkaline Phosphatase 85, Troponin I 0.046, C-Reactive Protein, Quantitative 3.2H, Pro-B- Type Natriuretic Peptide 231H, Total Protein 6.7, Albumin 3.2L, Globulin 3.5, Albumin/Globulin Ratio 0.9L, Triglycerides Level 61, Cholesterol Level 123, LDL Cholesterol 70, HDL Cholesterol 43, Cholesterol/HDL Ratio 2.9L, Folate 15.6, Thyroid Stimulating Hormone (TSH) < 0.010L, Free Thyroxine 1.10, Free Triiodothyronine 2.7 Height (Feet): 5 Height (Inches): 8.00 Weight (Pounds): 154 Objective Physical Exam: Vitals: reviewed General: NAD HEENT: nc, at Neck: supple Chest: clear breath sounds bilaterally Cardiovascular: RRR, no s3, s4 Abdomen: soft, nontender, nd Extremities: no cce, normal range of motion Neuro: alert and oriented Shahid Lgauerre MD May 14, 2019 10:55
--- NOTE | 2019-05-14 11:00 | NUR ---
NURSE NOTES: Pt stable,no c/o resp distress or pain noted,verbalized feeling better.
[2019-05-14 12:00] VITALS: BP 158/79
[2019-05-14 16:00] VITALS: BP 156/77
--- NOTE | 2019-05-14 17:03 | NUR ---
CASE MANAGEMENT: NOTE INTERQUAL MET
--- NOTE | 2019-05-14 18:31 | Pulmonology Progress Note ---
Assessment/Plan Assessment/Plan IMPRESSION: 1. Hypoxemia.now resolved 2. Altered mental status. 3. Marijuana use. 4. Diabetes mellitus. 5. Previous CVA. DISCUSSION: VQ scan low probability. I will follow as public transportation inspector. Pedro Witt M.D. Subjective Interval Events: states he is doing better. No longer hypoxic Constitutional: Reports: no symptoms HEENT: Repors: no symptoms Respiratory: Reports: no symptoms Cardiovascular: Reports: no symptoms Gastrointestinal/Abdominal: Reports: no symptoms Genitourinary: Reports: no symptoms Allergies: Coded Allergies: No Known Allergies (Unverified , 05/12/19) Objective Last 24 Hour Vital Signs Date Time Temp Pulse Resp B/P (MAP) Pulse Ox O2 Delivery O2 Flow Rate FiO2 05/14/19 16:00 60 05/14/19 16:00 98.1 61 20 156/77 (103) 98 05/14/19 15:15 158/79 05/14/19 12:00 57 05/14/19 12:00 96.3 68 20 158/79 (105) 98 05/14/19 09:32 147/77 05/14/19 09:00 Room Air 05/14/19 08:00 61 05/14/19 08:00 98.0 59 22 147/77 (100) 98 05/14/19 04:00 60 05/14/19 04:00 98.1 60 20 153/75 (101) 97 05/14/19 00:55 98.8 05/14/19 00:00 Room Air 05/14/19 00:00 97.7 63 20 142/75 (97) 98 05/14/19 00:00 60 05/13/19 21:00 Room Air 05/13/19 21:00 Room Air 05/13/19 20:00 61 05/13/19 20:00 98.2 65 20 149/82 (104) 100 Intake and Output 05/13/19 05/14/19 19:00 07:00 Intake Total 720 ml 240 ml Output Total 800 ml 300 ml Balance -80 ml -60 ml Intake Oral 720 ml 240 ml Output Urine Total 800 ml 300 ml # Voids 2 General Appearance: no acute distress HEENT: normocephalic Respiratory/Chest: chest wall non-tender, lungs clear Cardiovascular: normal peripheral pulses Abdomen: normal bowel sounds Laboratory Tests 05/14/19 03:30: White Blood Count 6.2, Red Blood Count 4.39L, Hemoglobin 13.4L, Hematocrit 39.6L , Mean Corpuscular Volume 90, Mean Corpuscular Hemoglobin 30.4, Mean Corpuscular Hemoglobin Concent 33.7, Red Cell Distribution Width 12.1, Platelet Count 148L, Mean Platelet Volume 8.2, Neutrophils (%) (Auto) 55.4, Lymphocytes ( %) (Auto) 34.1, Monocytes (%) (Auto) 5.3, Eosinophils (%) (Auto) 4.5H, Basophils (%) (Auto) 0.7, Sodium Level 138, Potassium Level 4.6, Chloride Level 103, Carbon Dioxide Level 27, Anion Gap 8, Blood Urea Nitrogen 29H, Creatinine 1.9H, Estimat Glomerular Filtration Rate 35.6, Glucose Level 143H, Hemoglobin A1c 6.7H, Uric Acid 8.6H, Calcium Level 8.6, Phosphorus Level 3.0, Magnesium Level 1.7L, Total Bilirubin 0.2, Gamma Glutamyl Transpeptidase 23, Aspartate Amino Transf (AST/SGOT) 13L, Alanine Aminotransferase (ALT/SGPT) 21, Alkaline Phosphatase 85, Troponin I 0.046, C-Reactive Protein, Quantitative 3.2H, Pro-B- Type Natriuretic Peptide 231H, Total Protein 6.7, Albumin 3.2L, Globulin 3.5, Albumin/Globulin Ratio 0.9L, Triglycerides Level 61, Cholesterol Level 123, LDL Cholesterol 70, HDL Cholesterol 43, Cholesterol/HDL Ratio 2.9L, Folate 15.6, Thyroid Stimulating Hormone (TSH) < 0.010L, Free Thyroxine 1.10, Free Triiodothyronine 2.7 Current Medications Medications (Trade) Dose Ordered Sig/Ruddy Route PRN Reason Start Time Stop Time Status Last Admin Dose Admin Acetaminophen/ Hydrocodone Bitart ([place] 5/325) 1 tab Q6H PRN ORAL For Pain 05/13/19 13:40 05/20/19 13:39 05/14/19 00:25 Allopurinol (allopurinoL) 300 mg DAILY ORAL 05/15/19 09:00 06/14/19 08:59 Dextrose (Dextrose 50%) 25 ml Q30M PRN IV Hypoglycemia 05/13/19 07:15 06/12/19 07:14 Dextrose (Dextrose 50%) 50 ml Q30M PRN IV Hypoglycemia 05/13/19 07:15 06/12/19 07:14 Docusate Sodium (Colace) 100 mg TWICE A DAY ORAL 05/13/19 18:00 06/12/19 17:59 05/14/19 18:06 Enoxaparin Sodium (Lovenox) 40 mg DAILY SUBQ 05/13/19 09:00 06/12/19 08:59 05/14/19 09:16 Hydralazine HCl (Apresoline) 25 mg Q4H PRN ORAL bp over 160 syst 05/13/19 14:45 06/12/19 14:44 Hydralazine HCl (Apresoline) 25 mg Q8HR ORAL 05/14/19 08:00 06/13/19 07:59 05/14/19 15:15 Insulin Aspart (NovoLOG) BEFORE MEALS AND HS SUBQ 05/13/19 11:30 06/12/19 11:29 05/14/19 12:43 Pantoprazole (Protonix) 40 mg DAILY ORAL 05/14/19 09:00 06/13/19 08:59 05/14/19 09:15 Pedro Witt MD May 14, 2019 18:31
--- NOTE | 2019-05-14 19:11 | NUR ---
HAND-OFF: Report given to Yamilet Guillen RN.pt sitting up on bed no resp distress presented,stable.
--- NOTE | 2019-05-14 19:30 | NUR ---
NURSE NOTES: Received report from Xavi RN, pt. in bed awake, A/O x's 3-4- able to make needs known, no signs or symptoms of acute cardiac or respiratory distress noted, bed alarm on, side rails up x's3 and safety brakes engaged, pt. appears to be clean and dry resting comfortably in bed, pt. has urinal at bedside and within easy reach- aware to ask for assist, RFA 20G IV intact and patent, safety measures continued, will continue with plan of care. Addendum: 05/14/19 at 2318 by CHAPIN KUNZ RN RN pt. appears to be sating well on room air- no distress noted.
[2019-05-14 20:00] VITALS: BP 159/77
[2019-05-14] MEDS: HydrALAZINE 25mg tab ORAL PRN (21:02)
[2019-05-14] MEDS: HydrALAZINE 25mg tab ORAL SCH (21:09)
[2019-05-15] VITALS: BP 152/72
[2019-05-15] MEDS: HYDROcodone/Acetamin 5/325 tab ORAL PRN (00:10)
[2019-05-15 04:00] VITALS: BP_SYST 154; BP_SYST 165; BP_DIAS 70; BP_DIAS 93
[2019-05-15] MEDS: HydrALAZINE 25mg tab ORAL PRN (04:39)
--- NOTE | 2019-05-15 04:59 | NUR ---
HAND-OFF: report given to Danny Verduzco- pt.remains stable and no signs of distress noted.
--- NOTE | 2019-05-15 05:05 | NUR ---
NURSE NOTES: Report received from CHAPIN OMALLEY. denies any pain at this time. No acute distress noted. will continue to monitor.
[2019-05-15] MEDS: HydrALAZINE 25mg tab ORAL SCH ×3 (06:00→21:43)
[2019-05-15] MEDS: NovoLOG Insulin Flexpen SUBQ SCH ×4 (06:30→21:50)
--- NOTE | 2019-05-15 07:55 | NUR ---
HAND-OFF: Report given to CHET OMALLEY using SBAR.No apparent distress noted.
[2019-05-15 08:00] VITALS: BP 143/81
--- NOTE | 2019-05-15 08:10 | NUR ---
NURSE NOTES: recvd pt. Pt is AOX4, pt appears SR on monitoring manager, pt is on room air with no sign of sob or acute resp distress. Pt has IV site that appears c/d/i and locked. Bed in lowest position, call light within reach, will continue with plan of care
[2019-05-15] MEDS: Docusate 100mg cap ORAL SCH ×2 (09:22→17:47)
[2019-05-15] MEDS: Enoxaparin 40mg Inj SUBQ SCH (09:23)
[2019-05-15 12:00] VITALS: BP 140/85
--- NOTE | 2019-05-15 13:58 | Nephrology Progress Note ---
Assessment/Plan Problem List: (1) Diabetic nephropathy (2) HTN (hypertension) (3) Chronic kidney disease (CKD) Assessment: GFR 35 (4) Acute metabolic encephalopathy Assessment Acute encephalopathy is most likely metabolic due to marijuana and alcohol. Elevated creatinine most likely chronic kidney disease as a result of history of hypertension and diabetes mellitus. Acute respiratory failure with hypoxia on presentation to emergency room. CO2 retention DM Proteinuria: Nephropathy. Plan no labs today add allopurinol- adjust bp meds- Optimize pulmonary status Keep BP and BS in check Avoid nephrotoxics per orders Subjective ROS Limited/Unobtainable: No Constitutional: Reports: malaise Objective Objective Last 24 Hour Vital Signs Date Time Temp Pulse Resp B/P (MAP) Pulse Ox O2 Delivery O2 Flow Rate FiO2 05/15/19 08:30 Room Air 05/15/19 08:00 98.4 71 18 143/81 (101) 97 05/15/19 08:00 75 05/15/19 06:00 162/80 05/15/19 04:39 165/93 05/15/19 04:00 98.6 66 20 165/93 (117) 98 05/15/19 03:30 68 05/15/19 00:40 98.8 05/15/19 00:00 98.0 77 20 152/72 (98) 98 05/14/19 23:31 62 05/14/19 21:09 159/77 05/14/19 21:00 Room Air 05/14/19 20:00 66 05/14/19 20:00 Room Air 05/14/19 20:00 98.8 68 18 159/77 (104) 98 05/14/19 16:00 60 05/14/19 16:00 98.1 61 20 156/77 (103) 98 05/14/19 15:15 158/79 Intake and Output 05/14/19 05/15/19 19:00 07:00 Intake Total 840 ml Output Total 1575 ml 625 ml Balance -735 ml -625 ml Intake Oral 840 ml Output Urine Total 1575 ml 625 ml Current Medications Medications (Trade) Dose Ordered Sig/Ruddy Route PRN Reason Start Time Stop Time Status Last Admin Dose Admin Acetaminophen/ Hydrocodone Bitart ([place] 5/325) 1 tab Q6H PRN ORAL For Pain 05/13/19 13:40 05/20/19 13:39 05/15/19 00:10 Allopurinol (allopurinoL) 300 mg DAILY ORAL 05/15/19 09:00 06/14/19 08:59 05/15/19 09:22 Dextrose (Dextrose 50%) 25 ml Q30M PRN IV Hypoglycemia 05/13/19 07:15 06/12/19 07:14 Dextrose (Dextrose 50%) 50 ml Q30M PRN IV Hypoglycemia 05/13/19 07:15 06/12/19 07:14 Docusate Sodium (Colace) 100 mg TWICE A DAY ORAL 05/13/19 18:00 06/12/19 17:59 05/15/19 09:22 Enoxaparin Sodium (Lovenox) 40 mg DAILY SUBQ 05/13/19 09:00 06/12/19 08:59 05/15/19 09:23 Hydralazine HCl (Apresoline) 25 mg Q4H PRN ORAL bp over 160 syst 05/13/19 14:45 06/12/19 14:44 05/15/19 04:39 Hydralazine HCl (Apresoline) 50 mg Q8HR ORAL 05/15/19 14:00 06/13/19 07:59 Insulin Aspart (NovoLOG) BEFORE MEALS AND HS SUBQ 05/13/19 11:30 06/12/19 11:29 05/14/19 12:43 Pantoprazole (Protonix) 40 mg DAILY ORAL 05/14/19 09:00 06/13/19 08:59 05/15/19 09:22 Height (Feet): 5 Height (Inches): 8.00 Weight (Pounds): 154 General Appearance: no apparent distress Cardiovascular: normal rate Respiratory/Chest: decreased breath sounds Abdomen: distended Objective no change Jose Luis Lin MD May 15, 2019 13:57
--- NOTE | 2019-05-15 14:00 | NUR ---
CASE MANAGEMENT: REVIEW 05/15/2019 SI:Acute metabolic encephalopathy T 98.4 HR 71 RR 18 B/P 143/80 SATS 97% ON RA LABS: BUN 29 CR 1.9 GLU 143 MG 1.7 AST 13 IS:PROTONIX PO QD ALLOPURINOL PO QD INSULIN ASPART SUBQ AC/HS HYDRALAZINE PO Q8H JANEY PLAN OF CARE: add allopurinol- adjust bp meds- Optimize pulmonary status Keep BP and BS in check Avoid nephrotoxics
[2019-05-15 16:00] VITALS: BP 142/82
--- NOTE | 2019-05-15 16:20 | General Progress Note ---
Assessment/Plan Status: stable Assessment/Plan: IM Progress Note Covering for Dr. Les Chacon Assessment and Recs: # Altered mental status - has periventricular deep white matter low-attenuation , probably due to chronic microvascular ischemic changes, but could also indicate transependymal flow of CSF i the setting of hydrocephalus. Old right pontine lacunar infarct --> recommend imaging and ct brain results as per above --> labs have been reviewed --> neuro eval pnr # Acute respiratory failure. --> cxr completed is neg --> now more comfortable, is on o2 --> less likely PE, without tachycardia, no major tachypnea --> per pulm --> lung vq reviewed, low probability of pe # Hypertension --> prn antihtn meds # Alden on Ckd --> as per renal --> cr trend Appreciate provider relations consultant care and dw RN Subjective Constitutional: Denies: no symptoms, chills, diaphoresis, fever, malaise, weakness, other HEENT: Denies: no symptoms, eye pain, blurred vision, tearing, double vision, ear pain, ear discharge, nose pain, nose congestion, throat pain, throat swelling, mouth pain, mouth swelling, other Cardiovascular: Denies: no symptoms, chest pain, edema, irregular heart rate, lightheadedness, palpitations, syncope, other Respiratory: Denies: no symptoms, cough, orthopnea, shortness of breath, SOB with excertion, SOB at rest, sputum, stridor, wheezing, other Gastrointestinal/Abdominal: Denies: no symptoms, abdomen distended, abdominal pain, black stools, tarry stools, blood in stool, constipated, diarrhea, difficulty swallowing, nausea, poor appetite, poor fluid intake, rectal bleeding , vomiting, other Genitourinary: Denies: no symptoms, burning, discharge, frequency, flank pain, hematuria, incontinence, pain, urgency, other Neurologic/Psychiatric: Denies: no symptoms, anxiety, depressed, emotional problems, headache, numbness, paresthesia, pre-existing deficit, seizure, tingling, tremors, weakness, other Endocrine: Denies: no symptoms, excessive sweating, flushing, intolerance to cold, intolerance to heat, increased hunger, increased thirst, increased urine, unexplained weight gain, unexplained weight loss, other Hematologic/Lymphatic: Denies: no symptoms, anemia, easy bleeding, easy bruising, other Allergies: Coded Allergies: No Known Allergies (Unverified , 05/12/19) Subjective 05/14: sdu, alert, lung vq reviewed, low probability of pe, on room air 05/15: no events, labs reviewed, no bleeding, labs ordered per renal, appreciated Objective Last 24 Hour Vital Signs Date Time Temp Pulse Resp B/P (MAP) Pulse Ox O2 Delivery O2 Flow Rate FiO2 05/15/19 14:15 140/85 05/15/19 12:00 97.7 67 18 140/85 (103) 99 05/15/19 12:00 65 05/15/19 08:30 Room Air 05/15/19 08:00 98.4 71 18 143/81 (101) 97 05/15/19 08:00 75 05/15/19 06:00 162/80 05/15/19 04:39 165/93 05/15/19 04:00 98.6 66 20 165/93 (117) 98 05/15/19 03:30 68 05/15/19 00:40 98.8 05/15/19 00:00 98.0 77 20 152/72 (98) 98 05/14/19 23:31 62 05/14/19 21:09 159/77 05/14/19 21:00 Room Air 05/14/19 20:00 66 05/14/19 20:00 Room Air 05/14/19 20:00 98.8 68 18 159/77 (104) 98 Intake and Output 05/14/19 05/15/19 19:00 07:00 Intake Total 840 ml Output Total 1575 ml 625 ml Balance -735 ml -625 ml Intake Oral 840 ml Output Urine Total 1575 ml 625 ml Height (Feet): 5 Height (Inches): 8.00 Weight (Pounds): 154 Objective Physical Exam: Vitals: reviewed General: NAD HEENT: nc, at Neck: supple Chest: clear breath sounds bilaterally Cardiovascular: RRR, no s3, s4 Abdomen: soft, nontender, nd Extremities: no cce, normal range of motion Neuro: alert and oriented Shahid Laguerre MD May 15, 2019 16:20
--- NOTE | 2019-05-15 18:38 | Pulmonology Progress Note ---
Assessment/Plan Assessment/Plan IMPRESSION: 1. Hypoxemia.now resolved 2. Altered mental status. 3. Marijuana use. 4. Diabetes mellitus. 5. Previous CVA. DISCUSSION: VQ scan low probability. 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 Pedro Witt M.D. Subjective Interval Events: None new Constitutional: Reports: no symptoms HEENT: Repors: no symptoms Respiratory: Reports: no symptoms Cardiovascular: Reports: no symptoms Allergies: Coded Allergies: No Known Allergies (Unverified , 05/12/19) Objective Last 24 Hour Vital Signs Date Time Temp Pulse Resp B/P (MAP) Pulse Ox O2 Delivery O2 Flow Rate FiO2 05/15/19 16:00 66 05/15/19 16:00 98.7 70 18 142/82 (102) 97 05/15/19 14:15 140/85 05/15/19 12:00 97.7 67 18 140/85 (103) 99 05/15/19 12:00 65 05/15/19 08:30 Room Air 05/15/19 08:00 98.4 71 18 143/81 (101) 97 05/15/19 08:00 75 05/15/19 06:00 162/80 05/15/19 04:39 165/93 05/15/19 04:00 98.6 66 20 165/93 (117) 98 05/15/19 03:30 68 05/15/19 00:40 98.8 05/15/19 00:00 98.0 77 20 152/72 (98) 98 05/14/19 23:31 62 05/14/19 21:09 159/77 05/14/19 21:00 Room Air 05/14/19 20:00 66 05/14/19 20:00 Room Air 05/14/19 20:00 98.8 68 18 159/77 (104) 98 Intake and Output 05/14/19 05/15/19 19:00 07:00 Intake Total 840 ml Output Total 1575 ml 625 ml Balance -735 ml -625 ml Intake Oral 840 ml Output Urine Total 1575 ml 625 ml General Appearance: no acute distress HEENT: normocephalic Respiratory/Chest: chest wall non-tender Cardiovascular: normal peripheral pulses Abdomen: normal bowel sounds Current Medications Medications (Trade) Dose Ordered Sig/Ruddy Route PRN Reason Start Time Stop Time Status Last Admin Dose Admin Acetaminophen/ Hydrocodone Bitart ([place] 5/325) 1 tab Q6H PRN ORAL For Pain 05/13/19 13:40 05/20/19 13:39 05/15/19 00:10 Allopurinol (allopurinoL) 300 mg DAILY ORAL 05/15/19 09:00 06/14/19 08:59 05/15/19 09:22 Dextrose (Dextrose 50%) 25 ml Q30M PRN IV Hypoglycemia 05/13/19 07:15 06/12/19 07:14 Dextrose (Dextrose 50%) 50 ml Q30M PRN IV Hypoglycemia 05/13/19 07:15 06/12/19 07:14 Docusate Sodium (Colace) 100 mg TWICE A DAY ORAL 05/13/19 18:00 06/12/19 17:59 05/15/19 17:47 Enoxaparin Sodium (Lovenox) 40 mg DAILY SUBQ 05/13/19 09:00 06/12/19 08:59 05/15/19 09:23 Hydralazine HCl (Apresoline) 25 mg Q4H PRN ORAL bp over 160 syst 05/13/19 14:45 06/12/19 14:44 05/15/19 04:39 Hydralazine HCl (Apresoline) 50 mg Q8HR ORAL 05/15/19 14:00 06/13/19 07:59 05/15/19 14:15 Insulin Aspart (NovoLOG) BEFORE MEALS AND HS SUBQ 05/13/19 11:30 06/12/19 11:29 05/14/19 12:43 Pantoprazole (Protonix) 40 mg DAILY ORAL 05/14/19 09:00 06/13/19 08:59 05/15/19 09:22 Pedro Witt MD May 15, 2019 18:38
--- NOTE | 2019-05-15 19:05 | NUR ---
NURSE NOTES: Received patient from SHAHRAM Mancera. Patient is aaox4, vss, with no acute distress. Patient is talkative, cooperative, and well groomed. Patient is on a low potassium diet, monitoring specialist, 3L NC, with right forearm 22g. Skin is intact. Bed at its lowest position call light in reach. Will continue to monitor. Addendum: 05/15/19 at 2000 by Mati Jason RN NURSE NOTES: Received patient from SHAHRAM Mancera. Patient is aaox4, vss, with no acute distress. Patient is talkative, cooperative, and well groomed. Patient is on a low potassium diet, monitoring specialist, with right forearm 22g. Skin is intact. Bed at its lowest position call light in reach. Will continue to monitor.
[2019-05-16] VITALS: BP 159/83
[2019-05-16 04:00] VITALS: BP 146/92
[2019-05-16] MEDS: NovoLOG Insulin Flexpen SUBQ SCH ×4 (05:48→21:00)
[2019-05-16] MEDS: HydrALAZINE 25mg tab ORAL SCH ×3 (05:50→21:25)
[2019-05-16] MEDS: HYDROcodone/Acetamin 5/325 tab ORAL PRN (05:51)
--- NOTE | 2019-05-16 07:15 | NUR ---
HAND-OFF: Report given to SHAHRAM Garcia.
--- NOTE | 2019-05-16 07:15 | NUR ---
NURSE NOTES: Received report from Mati OMALLEY. pt in bed awake and orientedx4 and able to make needs known. IV site in RFA 22G SL patent and asymptomatic. Side railsx 3 up for safety. On room air. Denied Pain or SOB. Call light and urinal easy to reach. Bed in lowest position and locked. Will continue to plan of care.
[2019-05-16 07:44] LABS: ALANINE AMINOTRANSFERASE 22 U/L (12-78); ALBUMIN 3.8 G/DL (3.4-5.0); ALBUMIN/GLOBULIN RATIO 0.8 (1.0-2.7); ALKALINE PHOSPHATASE 105 U/L (46-116); ANION GAP 9 mmol/L (5-15); ASPARTATE AMINO TRANSFERASE 17 U/L (15-37); BILIRUBIN,TOTAL 0.4 MG/DL (0.2-1.0); BLOOD UREA NITROGEN 30 mg/dL (7-18); CALCIUM 9.9 MG/DL (8.5-10.1); CARBON DIOXIDE 29 MMOL/L (21-32); CHLORIDE 100 MMOL/L (98-107); PHOSPHORUS 3.8 MG/DL (2.5-4.9); POTASSIUM 4.9 MMOL/L (3.5-5.1); SODIUM 138 MMOL/L (136-145)
[2019-05-16 08:00] VITALS: BP 138/84
[2019-05-16 08:29] LABS: BASOPHILS % (AUTO) 0.3 % (0.0-2.0); EOSINOPHILS % (AUTO) 3.1 % (0.0-3.0); HEMATOCRIT 47.1 % (42.0-52.0); HEMOGLOBIN 15.7 G/DL (14.2-18.0); LYMPHOCYTES % (AUTO) 26.8 % (20.0-45.0); MEAN CORPUSCULAR VOLUME 91 FL (80-99); MONOCYTES % (AUTO) 5.3 % (1.0-10.0); NEUTROPHILS % (AUTO) 64.5 % (45.0-75.0); PLATELET COUNT 192 K/UL (150-450); RED BLOOD COUNT 5.17 M/UL (4.70-6.10); WHITE BLOOD COUNT 5.8 K/UL (4.8-10.8)
[2019-05-16] MEDS: Docusate 100mg cap ORAL SCH ×2 (09:45→18:50)
[2019-05-16] MEDS: Enoxaparin 40mg Inj SUBQ SCH (09:47)
--- NOTE | 2019-05-16 11:35 | Nephrology Progress Note ---
Assessment/Plan Problem List: (1) Diabetic nephropathy (2) HTN (hypertension) (3) Chronic kidney disease (CKD) Assessment: GFR 35 (4) Acute metabolic encephalopathy Assessment Acute encephalopathy is most likely metabolic due to marijuana and alcohol. Elevated creatinine most likely chronic kidney disease as a result of history of hypertension and diabetes mellitus. Acute respiratory failure with hypoxia on presentation to emergency room. CO2 retention DM Proteinuria: Nephropathy. Plan no labs today add allopurinol- adjust bp meds- Optimize pulmonary status Keep BP and BS in check Avoid nephrotoxics per orders Subjective ROS Limited/Unobtainable: No Constitutional: Reports: malaise Objective Objective Last 24 Hour Vital Signs Date Time Temp Pulse Resp B/P (MAP) Pulse Ox O2 Delivery O2 Flow Rate FiO2 05/16/19 09:00 Room Air 05/16/19 08:00 83 05/16/19 08:00 98.3 75 17 138/84 (102) 97 05/16/19 06:21 98.4 05/16/19 05:50 146/92 05/16/19 04:00 98.4 87 20 146/92 (110) 97 05/16/19 03:56 68 05/16/19 00:00 71 05/16/19 00:00 97.9 72 20 159/83 (108) 97 05/15/19 21:43 155/92 05/15/19 21:00 Room Air 05/15/19 20:00 112 05/15/19 16:00 66 05/15/19 16:00 98.7 70 18 142/82 (102) 97 05/15/19 14:15 140/85 05/15/19 12:00 97.7 67 18 140/85 (103) 99 05/15/19 12:00 65 Intake and Output 05/15/19 05/16/19 19:00 07:00 Intake Total 600 ml Output Total 500 ml Balance 600 ml -500 ml Intake Oral 600 ml Output Urine Total 500 ml # Voids 3 Current Medications Medications (Trade) Dose Ordered Sig/Ruddy Route PRN Reason Start Time Stop Time Status Last Admin Dose Admin Acetaminophen/ Hydrocodone Bitart ([place] 5/325) 1 tab Q6H PRN ORAL For Pain 05/13/19 13:40 05/20/19 13:39 05/16/19 05:51 Allopurinol (allopurinoL) 300 mg DAILY ORAL 05/15/19 09:00 06/14/19 08:59 05/16/19 09:44 Dextrose (Dextrose 50%) 25 ml Q30M PRN IV Hypoglycemia 05/13/19 07:15 06/12/19 07:14 Dextrose (Dextrose 50%) 50 ml Q30M PRN IV Hypoglycemia 05/13/19 07:15 06/12/19 07:14 Docusate Sodium (Colace) 100 mg TWICE A DAY ORAL 05/13/19 18:00 06/12/19 17:59 05/16/19 09:45 Enoxaparin Sodium (Lovenox) 40 mg DAILY SUBQ 05/13/19 09:00 06/12/19 08:59 05/16/19 09:47 Hydralazine HCl (Apresoline) 25 mg Q4H PRN ORAL bp over 160 syst 05/13/19 14:45 06/12/19 14:44 05/15/19 04:39 Hydralazine HCl (Apresoline) 50 mg Q8HR ORAL 05/15/19 14:00 06/13/19 07:59 05/16/19 05:50 Insulin Aspart (NovoLOG) BEFORE MEALS AND HS SUBQ 05/13/19 11:30 06/12/19 11:29 05/15/19 21:50 Pantoprazole (Protonix) 40 mg DAILY ORAL 05/14/19 09:00 06/13/19 08:59 05/16/19 09:44 Laboratory Tests 05/16/19 05:12: White Blood Count 5.8, Red Blood Count 5.17, Hemoglobin 15.7, Hematocrit 47.1, Mean Corpuscular Volume 91, Mean Corpuscular Hemoglobin 30.4, Mean Corpuscular Hemoglobin Concent 33.4, Red Cell Distribution Width 12.0, Platelet Count 192, Mean Platelet Volume 7.5, Neutrophils (%) (Auto) 64.5, Lymphocytes (%) (Auto) 26.8, Monocytes (%) (Auto) 5.3, Eosinophils (%) (Auto) 3.1H, Basophils (%) (Auto ) 0.3, Sodium Level 138, Potassium Level 4.9, Chloride Level 100, Carbon Dioxide Level 29, Anion Gap 9, Blood Urea Nitrogen 30H, Creatinine 2.0H, Estimat Glomerular Filtration Rate 33.6, Glucose Level 133H, Calcium Level 9.9, Phosphorus Level 3.8, Magnesium Level 1.8, Total Bilirubin 0.4, Aspartate Amino Transf (AST/SGOT) 17, Alanine Aminotransferase (ALT/SGPT) 22, Alkaline Phosphatase 105, C-Reactive Protein, Quantitative 3.2H, Pro-B-Type Natriuretic Peptide 376H, Total Protein 8.3H, Albumin 3.8, Globulin 4.5, Albumin/Globulin Ratio 0.8L Height (Feet): 5 Height (Inches): 8.00 Weight (Pounds): 154 General Appearance: no apparent distress Cardiovascular: normal rate Respiratory/Chest: decreased breath sounds Abdomen: soft Objective no change Jose Luis Lin MD May 16, 2019 11:35
[2019-05-16 11:54] VITALS: BP 145/86
--- NOTE | 2019-05-16 11:57 | Pulmonology Progress Note ---
Assessment/Plan Assessment/Plan IMPRESSION: 1. Hypoxemia.now resolved 2. Altered mental status. 3. Marijuana use. 4. Diabetes mellitus. 5. Previous CVA. DISCUSSION: VQ scan low probability. 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 Pedro Witt M.D. Subjective Interval Events: None new reported Constitutional: Reports: no symptoms HEENT: Repors: no symptoms Respiratory: Reports: no symptoms Cardiovascular: Reports: no symptoms Gastrointestinal/Abdominal: Reports: no symptoms Allergies: Coded Allergies: No Known Allergies (Unverified , 05/12/19) Objective Last 24 Hour Vital Signs Date Time Temp Pulse Resp B/P (MAP) Pulse Ox O2 Delivery O2 Flow Rate FiO2 05/16/19 11:54 98.1 73 19 145/86 (105) 96 05/16/19 09:00 Room Air 05/16/19 08:00 83 05/16/19 08:00 98.3 75 17 138/84 (102) 97 05/16/19 06:21 98.4 05/16/19 05:50 146/92 05/16/19 04:00 98.4 87 20 146/92 (110) 97 05/16/19 03:56 68 05/16/19 00:00 71 05/16/19 00:00 97.9 72 20 159/83 (108) 97 05/15/19 21:43 155/92 05/15/19 21:00 Room Air 05/15/19 20:00 112 05/15/19 16:00 66 05/15/19 16:00 98.7 70 18 142/82 (102) 97 05/15/19 14:15 140/85 05/15/19 12:00 97.7 67 18 140/85 (103) 99 05/15/19 12:00 65 Intake and Output 05/15/19 05/16/19 18:59 06:59 Intake Total 600 ml Output Total 500 ml Balance 600 ml -500 ml Intake Oral 600 ml Output Urine Total 500 ml # Voids 3 General Appearance: no acute distress HEENT: normocephalic Respiratory/Chest: chest wall non-tender Cardiovascular: normal peripheral pulses Abdomen: normal bowel sounds Laboratory Tests 05/16/19 05:12: White Blood Count 5.8, Red Blood Count 5.17, Hemoglobin 15.7, Hematocrit 47.1, Mean Corpuscular Volume 91, Mean Corpuscular Hemoglobin 30.4, Mean Corpuscular Hemoglobin Concent 33.4, Red Cell Distribution Width 12.0, Platelet Count 192, Mean Platelet Volume 7.5, Neutrophils (%) (Auto) 64.5, Lymphocytes (%) (Auto) 26.8, Monocytes (%) (Auto) 5.3, Eosinophils (%) (Auto) 3.1H, Basophils (%) (Auto ) 0.3, Sodium Level 138, Potassium Level 4.9, Chloride Level 100, Carbon Dioxide Level 29, Anion Gap 9, Blood Urea Nitrogen 30H, Creatinine 2.0H, Estimat Glomerular Filtration Rate 33.6, Glucose Level 133H, Calcium Level 9.9, Phosphorus Level 3.8, Magnesium Level 1.8, Total Bilirubin 0.4, Aspartate Amino Transf (AST/SGOT) 17, Alanine Aminotransferase (ALT/SGPT) 22, Alkaline Phosphatase 105, C-Reactive Protein, Quantitative 3.2H, Pro-B-Type Natriuretic Peptide 376H, Total Protein 8.3H, Albumin 3.8, Globulin 4.5, Albumin/Globulin Ratio 0.8L Current Medications Medications (Trade) Dose Ordered Sig/Ruddy Route PRN Reason Start Time Stop Time Status Last Admin Dose Admin Acetaminophen/ Hydrocodone Bitart ([place] 5/325) 1 tab Q6H PRN ORAL For Pain 05/13/19 13:40 05/20/19 13:39 05/16/19 05:51 Allopurinol (allopurinoL) 300 mg DAILY ORAL 05/15/19 09:00 06/14/19 08:59 05/16/19 09:44 Dextrose (Dextrose 50%) 25 ml Q30M PRN IV Hypoglycemia 05/13/19 07:15 06/12/19 07:14 Dextrose (Dextrose 50%) 50 ml Q30M PRN IV Hypoglycemia 05/13/19 07:15 06/12/19 07:14 Docusate Sodium (Colace) 100 mg TWICE A DAY ORAL 05/13/19 18:00 06/12/19 17:59 05/16/19 09:45 Enoxaparin Sodium (Lovenox) 40 mg DAILY SUBQ 05/13/19 09:00 06/12/19 08:59 05/16/19 09:47 Hydralazine HCl (Apresoline) 25 mg Q4H PRN ORAL bp over 160 syst 05/13/19 14:45 06/12/19 14:44 05/15/19 04:39 Hydralazine HCl (Apresoline) 50 mg Q8HR ORAL 05/15/19 14:00 06/13/19 07:59 05/16/19 05:50 Insulin Aspart (NovoLOG) BEFORE MEALS AND HS SUBQ 05/13/19 11:30 06/12/19 11:29 05/15/19 21:50 Pantoprazole (Protonix) 40 mg DAILY ORAL 05/14/19 09:00 06/13/19 08:59 05/16/19 09:44 Pedro Witt MD May 16, 2019 11:57
[2019-05-16 16:00] VITALS: BP 151/90
[2019-05-16] MEDS ORDERED: NS 275ml ONE ×2 (16:28→16:40)
[2019-05-16] MEDS ORDERED: Tubing IV Secondary IV ONE (16:28)
--- NOTE | 2019-05-16 19:24 | NUR ---
HAND-OFF: Report given to Bryanna OMALLEY. Pt remains stable.
--- NOTE | 2019-05-16 19:25 | NUR ---
NURSE NOTES: received pt from Min RN., pt is awake and AO x4, RA and O2sat is at 97% no SOB. Right FA 22G Iv intact, clean, and patent. pt states no pain at this moment. call light within reach. will continue to monitor pt with plan of care.
[2019-05-16 20:00] VITALS: BP 159/89
[2019-05-17] VITALS: BP 162/87
--- NOTE | 2019-05-17 02:00 | NUR ---
NURSE NOTES: pt cleaned and oral care done by pt. no assisted needed for now. call light within reach.changed bed and provided new gown.
[2019-05-17 04:00] VITALS: BP 160/95
[2019-05-17] MEDS: NovoLOG Insulin Flexpen SUBQ SCH ×4 (06:07→21:24)
[2019-05-17] MEDS: HydrALAZINE 25mg tab ORAL SCH ×3 (06:07→21:20)
--- NOTE | 2019-05-17 07:25 | NUR ---
HAND-OFF: Report given Josefa OMALLEY.pt remain stable.
--- NOTE | 2019-05-17 07:27 | NUR ---
NURSE NOTES: Received report from Joceline Pierson RN. Patient is in bed, awake, alert, oriented, able to make needs known. Patient is on room air, no respiratory distress noted. ekg monitor tech shows SR. Right FA 22g IV intact, patent, asymptomatic. Patient denies pain/discomfort at this time. Safety precautions in place, bed locked, alarmed, and in lowest position, side rails up x3, and call light left within reach. Instructed to call for assistance, verbalized understanding. Will continue plan of care and will continue to monitor patient.
[2019-05-17 08:00] VITALS: BP 135/77
--- NOTE | 2019-05-17 08:22 | General Progress Note ---
Assessment/Plan Status: stable Assessment/Plan: IM Progress Note Covering for Dr. Les Chacon Assessment and Recs: # Altered mental status - has periventricular deep white matter low-attenuation , probably due to chronic microvascular ischemic changes, but could also indicate transependymal flow of CSF i the setting of hydrocephalus. 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 --> cxr completed is neg --> now more comfortable, is on o2 --> less likely PE, without tachycardia, no major tachypnea --> per pulm --> lung vq reviewed, low probability of pe # Hypertension --> prn antihtn meds # Alden on Ckd --> as per renal --> cr trend Appreciate color consultant care and edson RN Subjective Constitutional: Denies: no symptoms, chills, diaphoresis, fever, malaise, weakness, other HEENT: Denies: no symptoms, eye pain, blurred vision, tearing, double vision, ear pain, ear discharge, nose pain, nose congestion, throat pain, throat swelling, mouth pain, mouth swelling, other Cardiovascular: Denies: no symptoms, chest pain, edema, irregular heart rate, lightheadedness, palpitations, syncope, other Respiratory: Denies: no symptoms, cough, orthopnea, shortness of breath, SOB with excertion, SOB at rest, sputum, stridor, wheezing, other Genitourinary: Denies: no symptoms, burning, discharge, frequency, flank pain, hematuria, incontinence, pain, urgency, other Neurologic/Psychiatric: Denies: no symptoms, anxiety, depressed, emotional problems, headache, numbness, paresthesia, pre-existing deficit, seizure, tingling, tremors, weakness, other Endocrine: Denies: no symptoms, excessive sweating, flushing, intolerance to cold, intolerance to heat, increased hunger, increased thirst, increased urine, unexplained weight gain, unexplained weight loss, other Allergies: Coded Allergies: No Known Allergies (Unverified , 05/12/19) Subjective 05/14: sdu, alert, lung vq reviewed, low probability of pe, on room air 05/15: no events, labs reviewed, no bleeding, labs ordered per renal, appreciated 05/17: alert and oriented, breathing well on ra, seen by pulma nd renal Objective Last 24 Hour Vital Signs Date Time Temp Pulse Resp B/P (MAP) Pulse Ox O2 Delivery O2 Flow Rate FiO2 05/17/19 06:07 160/95 05/17/19 04:00 98.2 103 20 160/95 (116) 98 05/17/19 03:32 91 05/17/19 00:00 98.5 73 20 162/87 (112) 98 05/16/19 23:54 78 05/16/19 21:25 159/89 05/16/19 21:00 Room Air 05/16/19 20:00 98.1 95 20 159/89 (112) 97 05/16/19 19:26 86 05/16/19 16:00 98.1 76 17 151/90 (110) 97 05/16/19 16:00 71 05/16/19 13:11 145/86 05/16/19 12:00 77 05/16/19 11:54 98.1 73 19 145/86 (105) 96 05/16/19 09:00 Room Air Intake and Output 05/16/19 05/17/19 19:00 07:00 Intake Total 650 ml Output Total 1200 ml Balance 650 ml -1200 ml Intake Oral 650 ml Output Urine Total 1200 ml # Voids 3 # Bowel Movements 1 1 Height (Feet): 5 Height (Inches): 8.00 Weight (Pounds): 154 Objective Physical Exam: Vitals: reviewed General: NAD HEENT: nc, at Neck: supple Chest: clear breath sounds bilaterally Cardiovascular: RRR, no s3, s4 Abdomen: soft, nontender, nd Extremities: no cce, normal range of motion Neuro: alert and oriented Shahid Laguerre MD May 17, 2019 08:22
[2019-05-17] MEDS: Docusate 100mg cap ORAL SCH ×2 (08:49→17:34)
[2019-05-17] MEDS: Enoxaparin 40mg Inj SUBQ SCH (08:50)
[2019-05-17 12:00] VITALS: BP 137/83
--- NOTE | 2019-05-17 12:00 | NUR ---
NURSE NOTES: Patient noted to be pulling out condom catheter multiple times. Complete bed bath, linen change, and perineal care provided. Patient tolerating oxygen 3LPM via NC, saturating between 95 and 96%. Patient remains in stable condition at this time. Will continue to monitor. Addendum: 05/17/19 at 1742 by Josefa England RN Please disregard documentation above; entered in wrong patient.
--- NOTE | 2019-05-17 12:05 | Nephrology Progress Note ---
Assessment/Plan Problem List: (1) Diabetic nephropathy (2) HTN (hypertension) (3) Chronic kidney disease (CKD) Assessment: GFR 35 (4) Acute metabolic encephalopathy Assessment Acute encephalopathy is most likely metabolic due to marijuana and alcohol. Elevated creatinine most likely chronic kidney disease as a result of history of hypertension and diabetes mellitus. Acute respiratory failure with hypoxia on presentation to emergency room. CO2 retention DM Proteinuria: Nephropathy. Plan no labs today add allopurinol- adjust bp meds- Optimize pulmonary status Keep BP and BS in check Avoid nephrotoxics per orders Subjective ROS Limited/Unobtainable: No Constitutional: Reports: malaise Objective Objective Last 24 Hour Vital Signs Date Time Temp Pulse Resp B/P (MAP) Pulse Ox O2 Delivery O2 Flow Rate FiO2 05/17/19 09:00 Room Air 05/17/19 08:00 97.7 114 18 135/77 (96) 97 05/17/19 07:49 98 05/17/19 06:07 160/95 05/17/19 04:00 98.2 103 20 160/95 (116) 98 05/17/19 03:32 91 05/17/19 00:00 98.5 73 20 162/87 (112) 98 05/16/19 23:54 78 05/16/19 21:25 159/89 05/16/19 21:00 Room Air 05/16/19 20:00 98.1 95 20 159/89 (112) 97 05/16/19 19:26 86 05/16/19 16:00 98.1 76 17 151/90 (110) 97 05/16/19 16:00 71 05/16/19 13:11 145/86 Intake and Output 05/16/19 05/17/19 19:00 07:00 Intake Total 650 ml Output Total 1200 ml Balance 650 ml -1200 ml Intake Oral 650 ml Output Urine Total 1200 ml # Voids 3 # Bowel Movements 1 1 Height (Feet): 5 Height (Inches): 8.00 Weight (Pounds): 154 General Appearance: no apparent distress Objective no change Jose Luis Lin MD May 17, 2019 12:05
[2019-05-17] MEDS ORDERED: NS 275ml ONE (14:31)
[2019-05-17] MEDS: HYDROcodone/Acetamin 5/325 tab ORAL PRN (14:35)
--- NOTE | 2019-05-17 15:50 | Pulmonology Progress Note ---
Assessment/Plan Assessment/Plan IMPRESSION: 1. Hypoxemia.now resolved 2. Altered mental status. 3. Marijuana use. 4. Diabetes mellitus. 5. Previous CVA. DISCUSSION: VQ scan low probability. 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 Pedro Witt M.D. Subjective Interval Events: None new Constitutional: Reports: no symptoms HEENT: Repors: no symptoms Respiratory: Reports: no symptoms Cardiovascular: Reports: no symptoms Gastrointestinal/Abdominal: Reports: no symptoms Allergies: Coded Allergies: No Known Allergies (Unverified , 05/12/19) Objective Last 24 Hour Vital Signs Date Time Temp Pulse Resp B/P (MAP) Pulse Ox O2 Delivery O2 Flow Rate FiO2 05/17/19 14:36 136/85 05/17/19 12:00 98.2 87 19 137/83 (101) 97 05/17/19 11:43 98 05/17/19 09:00 Room Air 05/17/19 08:00 97.7 114 18 135/77 (96) 97 05/17/19 07:49 98 05/17/19 06:07 160/95 05/17/19 04:00 98.2 103 20 160/95 (116) 98 05/17/19 03:32 91 05/17/19 00:00 98.5 73 20 162/87 (112) 98 05/16/19 23:54 78 05/16/19 21:25 159/89 05/16/19 21:00 Room Air 05/16/19 20:00 98.1 95 20 159/89 (112) 97 05/16/19 19:26 86 05/16/19 16:00 98.1 76 17 151/90 (110) 97 05/16/19 16:00 71 Intake and Output 05/16/19 05/17/19 19:00 07:00 Intake Total 650 ml Output Total 1200 ml Balance 650 ml -1200 ml Intake Oral 650 ml Output Urine Total 1200 ml # Voids 3 # Bowel Movements 1 1 General Appearance: no acute distress HEENT: normocephalic Respiratory/Chest: chest wall non-tender, lungs clear Cardiovascular: normal peripheral pulses Abdomen: normal bowel sounds Current Medications Medications (Trade) Dose Ordered Sig/Ruddy Route PRN Reason Start Time Stop Time Status Last Admin Dose Admin Acetaminophen/ Hydrocodone Bitart ([place] 5/325) 1 tab Q6H PRN ORAL For Pain 05/13/19 13:40 05/20/19 13:39 05/17/19 14:35 Allopurinol (allopurinoL) 300 mg DAILY ORAL 05/15/19 09:00 06/14/19 08:59 05/17/19 08:49 Dextrose (Dextrose 50%) 25 ml Q30M PRN IV Hypoglycemia 05/13/19 07:15 06/12/19 07:14 Dextrose (Dextrose 50%) 50 ml Q30M PRN IV Hypoglycemia 05/13/19 07:15 06/12/19 07:14 Docusate Sodium (Colace) 100 mg TWICE A DAY ORAL 05/13/19 18:00 06/12/19 17:59 05/17/19 08:49 Enoxaparin Sodium (Lovenox) 40 mg DAILY SUBQ 05/13/19 09:00 06/12/19 08:59 05/17/19 08:50 Hydralazine HCl (Apresoline) 25 mg Q4H PRN ORAL bp over 160 syst 05/13/19 14:45 06/12/19 14:44 05/15/19 04:39 Hydralazine HCl (Apresoline) 50 mg Q8HR ORAL 05/15/19 14:00 06/13/19 07:59 05/17/19 14:36 Insulin Aspart (NovoLOG) BEFORE MEALS AND HS SUBQ 05/13/19 11:30 06/12/19 11:29 05/17/19 11:23 Pantoprazole (Protonix) 40 mg DAILY ORAL 05/14/19 09:00 06/13/19 08:59 05/17/19 08:49 Pedro Witt MD May 17, 2019 15:50
[2019-05-17 16:00] VITALS: BP 132/89
--- NOTE | 2019-05-17 17:38 | NUR ---
NURSE NOTES: Dr Morgan contacted regarding patient's episodes of sinus tachycardia at rest and during ADLs. ekg monitor tech shows NSR at this time with HR of 93. No orders received at this time; will continue to monitor patient.
--- NOTE | 2019-05-17 19:02 | NUR ---
HAND-OFF: Report given to SHAHRAM Whitfield. Patient in stable condition.
--- NOTE | 2019-05-17 19:07 | NUR ---
NURSE NOTES: Report received from SHAHRAM Rivero. Observed pt lying in the bed, awake, no distress noted at this time. SR on monitoring engineer with HR of 80s noted. On room air with no sob noted. Denies any pain at this time. IV on R FA 22G, SL. Bed in the lowest position. Side rails up x3. Will continue to monitor.
[2019-05-17 20:00] VITALS: BP 157/79
[2019-05-18] VITALS: BP 140/77
[2019-05-18] MEDS: HYDROcodone/Acetamin 5/325 tab ORAL PRN ×2 (01:01→20:47)
--- NOTE | 2019-05-18 02:55 | NUR ---
NURSE NOTES: No acute distress noted at this time. Pt sleeping, calm and comfortable. SR on classroom monitor. On room air with no sob. Will continue to monitor.
[2019-05-18 04:00] VITALS: BP 153/82
[2019-05-18] MEDS: NovoLOG Insulin Flexpen SUBQ SCH ×4 (06:35→20:46)
[2019-05-18] MEDS: HydrALAZINE 25mg tab ORAL SCH (06:36)
--- NOTE | 2019-05-18 07:25 | NUR ---
NURSE NOTES: received patient report from dinh gallardo. patient is on bed awake. not in acute in distress. bed is low and locked for safety. will follow plan of care.
--- NOTE | 2019-05-18 07:34 | NUR ---
HAND-OFF: Report given to SHAHRAM Jc. No acute distress noted at this time
[2019-05-18 08:00] VITALS: BP 130/80
--- NOTE | 2019-05-18 08:41 | Cardiac Electrophysiology PN ---
Subjective Subjective [id number] Objective Last 24 Hour Vital Signs Date Time Temp Pulse Resp B/P (MAP) Pulse Ox O2 Delivery O2 Flow Rate FiO2 05/18/19 06:36 155/87 05/18/19 04:00 97.6 74 18 153/82 (105) 98 05/18/19 04:00 70 05/18/19 00:00 99.6 91 20 140/77 (98) 97 05/18/19 00:00 94 05/17/19 21:20 159/79 05/17/19 21:00 Room Air 05/17/19 20:00 82 05/17/19 20:00 98.8 77 18 157/79 (105) 97 05/17/19 16:00 98.4 91 18 132/89 (103) 97 05/17/19 15:12 91 05/17/19 14:36 136/85 05/17/19 12:00 98.2 87 19 137/83 (101) 97 05/17/19 11:43 98 05/17/19 09:00 Room Air Intake and Output 05/17/19 05/18/19 19:00 07:00 Intake Total 700 ml 500 ml Output Total 1000 ml 800 ml Balance -300 ml -300 ml Intake Oral 700 ml 500 ml Output Urine Total 1000 ml 800 ml Shakeel Morgan MD May 18, 2019 08:41
--- NOTE | 2019-05-18 09:13 | Hematology/Onc Progress Note ---
Assessment/Plan Assessment/Plan Assessment and Recs: # Altered mental status - has periventricular deep white matter low-attenuation , probably due to chronic microvascular ischemic changes, but could also indicate transependymal flow of CSF i the setting of hydrocephalus. 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 --> cxr completed is neg --> now more comfortable, is on o2 --> less likely PE, without tachycardia, no major tachypnea --> per pulm --> lung vq reviewed, low probability of pe # Hypertension --> prn antihtn meds # Alden on Ckd --> as per renal --> cr trend Appreciate senior information security consultant care and edson RN Subjective HEENT: Denies: no symptoms, eye pain, blurred vision, tearing, double vision, ear pain, ear discharge, nose pain, nose congestion, throat pain, throat swelling, mouth pain, mouth swelling, other Cardiovascular: Denies: no symptoms, chest pain, edema, irregular heart rate, lightheadedness, palpitations, syncope, other Respiratory: Denies: no symptoms, cough, shortness of breath, SOB with excertion, SOB at rest, sputum, wheezing, other Gastrointestinal/Abdominal: Denies: no symptoms, abdomen distended, abdominal pain, black stools, tarry stools, blood in stool, constipated, diarrhea, difficulty swallowing, nausea, poor appetite, poor fluid intake, rectal bleeding , vomiting, other Neurologic/Psychiatric: Denies: no symptoms, anxiety, depressed, emotional problems, headache, numbness, paresthesia, pre-existing deficit, seizure, tingling, tremors, weakness, other Hematologic/Lymphatic: Denies: no symptoms, anemia, easy bleeding, easy bruising, adenopathy, other Allergies: Coded Allergies: No Known Allergies (Unverified , 05/12/19) Subjective 05/14: sdu, alert, lung vq reviewed, low probability of pe, on room air 05/15: no events, labs reviewed, no bleeding, labs ordered per renal, appreciated 05/17: alert and oriented, breathing well on ra, seen by pulma nd renal 05/18: no major changes, no bleeding, labs noted, now improved, edson [place] Objective Objective Current Medications Medications (Trade) Dose Ordered Sig/Ruddy Route PRN Reason Start Time Stop Time Status Last Admin Dose Admin Acetaminophen/ Hydrocodone Bitart ([place] 5/325) 1 tab Q6H PRN ORAL For Pain 05/13/19 13:40 05/20/19 13:39 05/18/19 01:01 Allopurinol (allopurinoL) 300 mg DAILY ORAL 05/15/19 09:00 06/14/19 08:59 05/17/19 08:49 Dextrose (Dextrose 50%) 25 ml Q30M PRN IV Hypoglycemia 05/13/19 07:15 06/12/19 07:14 Dextrose (Dextrose 50%) 50 ml Q30M PRN IV Hypoglycemia 05/13/19 07:15 06/12/19 07:14 Docusate Sodium (Colace) 100 mg TWICE A DAY ORAL 05/13/19 18:00 06/12/19 17:59 05/17/19 17:34 Enoxaparin Sodium (Lovenox) 40 mg DAILY SUBQ 05/13/19 09:00 06/12/19 08:59 05/17/19 08:50 Hydralazine HCl (Apresoline) 25 mg Q4H PRN ORAL bp over 160 syst 05/13/19 14:45 06/12/19 14:44 05/15/19 04:39 Hydralazine HCl (Apresoline) 50 mg Q8HR ORAL 05/15/19 14:00 06/13/19 07:59 05/18/19 06:36 Insulin Aspart (NovoLOG) BEFORE MEALS AND HS SUBQ 05/13/19 11:30 06/12/19 11:29 05/18/19 06:35 Pantoprazole (Protonix) 40 mg DAILY ORAL 05/14/19 09:00 06/13/19 08:59 05/17/19 08:49 Propranolol HCl (Inderal) 10 mg THREE TIMES A DAY ORAL 05/18/19 09:00 06/17/19 08:59 Last 24 Hour Vital Signs Date Time Temp Pulse Resp B/P (MAP) Pulse Ox O2 Delivery O2 Flow Rate FiO2 05/18/19 06:36 155/87 05/18/19 04:00 97.6 74 18 153/82 (105) 98 05/18/19 04:00 70 05/18/19 00:00 99.6 91 20 140/77 (98) 97 05/18/19 00:00 94 05/17/19 21:20 159/79 05/17/19 21:00 Room Air 05/17/19 20:00 82 05/17/19 20:00 98.8 77 18 157/79 (105) 97 05/17/19 16:00 98.4 91 18 132/89 (103) 97 05/17/19 15:12 91 05/17/19 14:36 136/85 05/17/19 12:00 98.2 87 19 137/83 (101) 97 05/17/19 11:43 98 05/17/19 09:00 Room Air 05/17/19 08:00 97.7 114 18 135/77 (96) 97 05/17/19 07:49 98 05/17/19 06:07 160/95 05/17/19 04:00 98.2 103 20 160/95 (116) 98 05/17/19 03:32 91 05/17/19 00:00 98.5 73 20 162/87 (112) 98 05/16/19 23:54 78 05/16/19 21:25 159/89 05/16/19 21:00 Room Air 05/16/19 20:00 98.1 95 20 159/89 (112) 97 05/16/19 19:26 86 05/16/19 16:00 98.1 76 17 151/90 (110) 97 05/16/19 16:00 71 05/16/19 13:11 145/86 05/16/19 12:00 77 05/16/19 11:54 98.1 73 19 145/86 (105) 96 Intake and Output 05/17/19 05/18/19 19:00 07:00 Intake Total 700 ml 500 ml Output Total 1000 ml 800 ml Balance -300 ml -300 ml Intake Oral 700 ml 500 ml Output Urine Total 1000 ml 800 ml Labs Test 05/16/19 05:12 White Blood Count 5.8 K/UL (4.8-10.8) Red Blood Count 5.17 M/UL (4.70-6.10) Hemoglobin 15.7 G/DL (14.2-18.0) Hematocrit 47.1 % (42.0-52.0) Mean Corpuscular Volume 91 FL (80-99) Mean Corpuscular Hemoglobin 30.4 PG (27.0-31.0) Mean Corpuscular Hemoglobin Concent 33.4 G/DL (32.0-36.0) Red Cell Distribution Width 12.0 % (11.6-14.8) Platelet Count 192 K/UL (150-450) Mean Platelet Volume 7.5 FL (6.5-10.1) Neutrophils (%) (Auto) 64.5 % (45.0-75.0) Lymphocytes (%) (Auto) 26.8 % (20.0-45.0) Monocytes (%) (Auto) 5.3 % (1.0-10.0) Eosinophils (%) (Auto) 3.1 % (0.0-3.0) Basophils (%) (Auto) 0.3 % (0.0-2.0) Sodium Level 138 MMOL/L (136-145) Potassium Level 4.9 MMOL/L (3.5-5.1) Chloride Level 100 MMOL/L (98-107) Carbon Dioxide Level 29 MMOL/L (21-32) Anion Gap 9 mmol/L (5-15) Blood Urea Nitrogen 30 mg/dL (7-18) Creatinine 2.0 MG/DL (0.55-1.30) Estimat Glomerular Filtration Rate 33.6 mL/min (>60) Glucose Level 133 MG/DL (74-106) Calcium Level 9.9 MG/DL (8.5-10.1) Phosphorus Level 3.8 MG/DL (2.5-4.9) Magnesium Level 1.8 MG/DL (1.8-2.4) Total Bilirubin 0.4 MG/DL (0.2-1.0) Aspartate Amino Transf (AST/SGOT) 17 U/L (15-37) Alanine Aminotransferase (ALT/SGPT) 22 U/L (12-78) Alkaline Phosphatase 105 U/L (46-116) C-Reactive Protein, Quantitative 3.2 mg/dL (0.00-0.90) Pro-B-Type Natriuretic Peptide 376 pg/mL (0-125) Total Protein 8.3 G/DL (6.4-8.2) Albumin 3.8 G/DL (3.4-5.0) Globulin 4.5 g/dL Albumin/Globulin Ratio 0.8 (1.0-2.7) Height (Feet): 5 Height (Inches): 8.00 Weight (Pounds): 154 Objective Physical Exam: Vitals: reviewed General: NAD HEENT: nc, at Neck: supple Chest: clear breath sounds bilaterally Cardiovascular: RRR, no s3, s4 Abdomen: soft, nontender, nd Extremities: no cce, normal range of motion Neuro: alert and oriented Shahid Laguerre MD May 18, 2019 09:13
[2019-05-18] MEDS: Propranolol 10mg tab ORAL SCH ×3 (09:28→17:17)
[2019-05-18] MEDS: Docusate 100mg cap ORAL SCH ×2 (09:29→17:17)
[2019-05-18] MEDS: Enoxaparin 40mg Inj SUBQ SCH (09:33)
--- NOTE | 2019-05-18 10:31 | Nephrology Progress Note ---
Assessment/Plan Problem List: (1) Diabetic nephropathy (2) HTN (hypertension) (3) Chronic kidney disease (CKD) Assessment: GFR 35 (4) Acute metabolic encephalopathy Assessment Acute encephalopathy is most likely metabolic due to marijuana and alcohol. Elevated creatinine most likely chronic kidney disease as a result of history of hypertension and diabetes mellitus. Acute respiratory failure with hypoxia on presentation to emergency room. CO2 retention DM Proteinuria: Nephropathy. Plan no labs today add allopurinol- adjust bp meds- Optimize pulmonary status Keep BP and BS in check Avoid nephrotoxics per orders Subjective ROS Limited/Unobtainable: No Objective Objective Last 24 Hour Vital Signs Date Time Temp Pulse Resp B/P (MAP) Pulse Ox O2 Delivery O2 Flow Rate FiO2 05/18/19 09:28 70 155/87 05/18/19 09:00 Room Air 05/18/19 08:00 97.7 78 22 130/80 (97) 99 05/18/19 06:36 155/87 05/18/19 04:00 97.6 74 18 153/82 (105) 98 05/18/19 04:00 70 05/18/19 00:00 99.6 91 20 140/77 (98) 97 05/18/19 00:00 94 05/17/19 21:20 159/79 05/17/19 21:00 Room Air 05/17/19 20:00 82 05/17/19 20:00 98.8 77 18 157/79 (105) 97 05/17/19 16:00 98.4 91 18 132/89 (103) 97 05/17/19 15:12 91 05/17/19 14:36 136/85 05/17/19 12:00 98.2 87 19 137/83 (101) 97 05/17/19 11:43 98 Intake and Output 05/17/19 05/18/19 19:00 07:00 Intake Total 700 ml 500 ml Output Total 1000 ml 800 ml Balance -300 ml -300 ml Intake Oral 700 ml 500 ml Output Urine Total 1000 ml 800 ml Height (Feet): 5 Height (Inches): 8.00 Weight (Pounds): 154 General Appearance: no apparent distress Objective no change Jose Luis Lin MD May 18, 2019 10:31
--- NOTE | 2019-05-18 10:57 | Pulmonology Progress Note ---
Assessment/Plan Assessment/Plan IMPRESSION: 1. Hypoxemia.now resolved 2. Altered mental status. 3. Marijuana use. 4. Diabetes mellitus. 5. Previous CVA. DISCUSSION: VQ scan low probability. 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 Dc planning BP control per cardiology Pedro Witt M.D. Subjective Interval Events: BP control better Constitutional: Reports: no symptoms HEENT: Repors: no symptoms Respiratory: Reports: no symptoms Cardiovascular: Reports: no symptoms Allergies: Coded Allergies: No Known Allergies (Unverified , 05/12/19) Objective Last 24 Hour Vital Signs Date Time Temp Pulse Resp B/P (MAP) Pulse Ox O2 Delivery O2 Flow Rate FiO2 05/18/19 09:28 70 155/87 05/18/19 09:00 Room Air 05/18/19 08:00 97.7 78 22 130/80 (97) 99 05/18/19 07:40 78 05/18/19 06:36 155/87 05/18/19 04:00 97.6 74 18 153/82 (105) 98 05/18/19 04:00 70 05/18/19 00:00 99.6 91 20 140/77 (98) 97 05/18/19 00:00 94 05/17/19 21:20 159/79 05/17/19 21:00 Room Air 05/17/19 20:00 82 05/17/19 20:00 98.8 77 18 157/79 (105) 97 05/17/19 16:00 98.4 91 18 132/89 (103) 97 05/17/19 15:12 91 05/17/19 14:36 136/85 05/17/19 12:00 98.2 87 19 137/83 (101) 97 05/17/19 11:43 98 Intake and Output 05/17/19 05/18/19 19:00 07:00 Intake Total 700 ml 500 ml Output Total 1000 ml 800 ml Balance -300 ml -300 ml Intake Oral 700 ml 500 ml Output Urine Total 1000 ml 800 ml General Appearance: no acute distress HEENT: normocephalic Respiratory/Chest: chest wall non-tender, lungs clear Cardiovascular: normal rate Abdomen: normal bowel sounds Current Medications Medications (Trade) Dose Ordered Sig/Ruddy Route PRN Reason Start Time Stop Time Status Last Admin Dose Admin Acetaminophen/ Hydrocodone Bitart ([place] 5/325) 1 tab Q6H PRN ORAL For Pain 05/13/19 13:40 05/20/19 13:39 05/18/19 01:01 Allopurinol (allopurinoL) 300 mg DAILY ORAL 05/15/19 09:00 06/14/19 08:59 05/18/19 09:28 Dextrose (Dextrose 50%) 25 ml Q30M PRN IV Hypoglycemia 05/13/19 07:15 06/12/19 07:14 Dextrose (Dextrose 50%) 50 ml Q30M PRN IV Hypoglycemia 05/13/19 07:15 06/12/19 07:14 Docusate Sodium (Colace) 100 mg TWICE A DAY ORAL 05/13/19 18:00 06/12/19 17:59 05/18/19 09:29 Enoxaparin Sodium (Lovenox) 40 mg DAILY SUBQ 05/13/19 09:00 06/12/19 08:59 05/18/19 09:33 Hydralazine HCl (Apresoline) 25 mg Q4H PRN ORAL bp over 160 syst 05/13/19 14:45 06/12/19 14:44 05/15/19 04:39 Hydralazine HCl (Apresoline) 50 mg Q8HR ORAL 05/15/19 14:00 06/13/19 07:59 05/18/19 06:36 Insulin Aspart (NovoLOG) BEFORE MEALS AND HS SUBQ 05/13/19 11:30 06/12/19 11:29 05/18/19 06:35 Pantoprazole (Protonix) 40 mg DAILY ORAL 05/14/19 09:00 06/13/19 08:59 05/18/19 09:28 Propranolol HCl (Inderal) 10 mg THREE TIMES A DAY ORAL 05/18/19 09:00 06/17/19 08:59 05/18/19 09:28 Pedro Witt MD May 18, 2019 10:57
[2019-05-18 12:00] VITALS: BP 160/78
[2019-05-18] MEDS: HydrALAZINE 50mg tab ORAL SCH ×2 (13:05→22:29)
--- NOTE | 2019-05-18 13:44 | NUR ---
HAND-OFF: Report given to abbe gallardo.
--- NOTE | 2019-05-18 13:44 | NUR ---
NURSE NOTES: Patient's transferred from [facility] as an overfloat Tele patient. No transferred orders needed. Patient's in stable condition, ambulates steady even with Left side weakness. Patient's AAO x 4, denies pain , denies chest pain, no s/s of distress or SOB. IV is intact, patent, asymptomatic and saline locked. security monitor is on. Patient's belonging list over at bedside with [facility]. Nurse report given by SHAHRAM Stewart. All needs met at this time. Will continue to monitor.
--- NOTE | 2019-05-18 15:00 | Consultation ---
DATE OF CONSULTATION: 05/18/2019 CARDIOLOGY CONSULTATION CONSULTING PHYSICIAN: Shakeel Morgan M.D. REFERRING PHYSICIAN: Les Tse M.D. REASON FOR CONSULTATION: Tachycardia and hypertension. HISTORY OF PRESENT ILLNESS: The patient is a 68-year-old gentleman with history of hypertension, diabetes, and CVA with the left hemiparesis, who was brought to the emergency room with altered mental status and hypoxemia. The patient also drinks alcohol and uses marijuana. The patient became unresponsive and a friend called 911. The patient had no seizure activity, however, he was found to be hypoxic. The patient was admitted to the hospital and underwent a V/Q scan that shows low probability for pulmonary embolus. A Cardiology consultation was requested, as the patient was tachycardic. REVIEW OF SYSTEMS: Negative other than what was mentioned in history of present illness. PAST MEDICAL HISTORY: As mentioned above. FAMILY HISTORY: Noncontributory. 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 Does not smoke or drink alcohol. PHYSICAL EXAMINATION: VITAL SIGNS: Show blood pressure of 155/87, pulse 70, respirations 18, and temperature 97.6. HEAD AND NECK: Showed no JVD. LUNGS: Clear. CARDIOVASCULAR: Shows regular S1 and S2 with no gallop or murmur. ABDOMEN: Soft and nontender. EXTREMITIES: No pitting edema. LABORATORY AND DIAGNOSTIC DATA: His EKG showed sinus rhythm with LVH with no acute ischemic changes. Labs show white count of 5.9, hemoglobin 15.7, hematocrit of 47.1, and platelet count 192,000. Sodium 138, potassium 4.9, BUN of 30, creatinine of 2.09, glucose of 133. Troponin is negative x2. Urine toxicology is positive for marijuana. ASSESSMENT AND PLAN: 1. Tachycardia. This was sinus tachycardia. No evidence of SVT or atrial fibrillation. The patient is on Inderal 10 mg three times daily that will be continued. This patient has history of hyperthyroidism. The patient already ruled out for myocardial infarction. His T4 and T3 within normal range, however, his TSH is less than 0.01. An echocardiogram will also be ordered for further evaluation. 2. History of hypertension, on hydralazine 50 mg every 8 hours and Inderal 10 mg three times daily. 3. Shortness of breath. Further evaluation by Dr. Witt. His hypoxemia has resolved, V/Q scan shows low probability. 4. Diabetes. 5. Prior CVA. 6. Marijuana use. Thank you very much for allowing me to participate in the care of this patient. Please do not hesitate to contact me for any questions regarding my evaluation. Shakeel Morgan M.D. DR: AXEL JOB#: [id number] CC:
[2019-05-18 16:00] VITALS: BP 156/73
--- NOTE | 2019-05-18 19:10 | NUR ---
HAND-OFF: Report given to SHAHRAM Mccall. Plan of care endorsed, patient's stable. .
--- NOTE | 2019-05-18 19:15 | NUR ---
NURSE NOTES: Received report from SHAHRAM Turpin
--- NOTE | 2019-05-18 19:20 | NUR ---
NURSE NOTES: Seen pt on initial rounding. Pt sitting up on bed, resting at this time. In good spirit and engaging in conversation well. Denies pain, no further needs noted at this time. instructed to call for assistance anytime. Call light w/in reach.
[2019-05-18 20:00] VITALS: BP 151/77
--- NOTE | 2019-05-18 20:57 | General Progress Note ---
Assessment/Plan Problem List: (1) Altered mental status ICD Codes: R41.82 - Altered mental status, unspecified SNOMED: 110472154, 018719169 Qualifiers: Qualified Codes: R41.82 - Altered mental status, unspecified (2) Hypertension ICD Codes: I10 - Essential (primary) hypertension SNOMED: 05599474, 743583421 Qualifiers: Qualified Codes: I10 - Essential (primary) hypertension (3) HTN (hypertension) ICD Codes: I10 - Essential (primary) hypertension SNOMED: 43997120 (4) Diabetic nephropathy ICD Codes: E11.21 - Type 2 diabetes mellitus with diabetic nephropathy SNOMED: 033769650 (5) Chronic kidney disease (CKD) ICD Codes: N18.9 - Chronic kidney disease, unspecified SNOMED: 569210363 Status: stable Assessment/Plan: confused htn s/p syncope hypoxic improved needs close monitering reviewed chart and labs Subjective ROS Limited/Unobtainable: Yes Allergies: Coded Allergies: No Known Allergies (Unverified , 05/12/19) Objective Last 24 Hour Vital Signs Date Time Temp Pulse Resp B/P (MAP) Pulse Ox O2 Delivery O2 Flow Rate FiO2 05/18/19 17:17 58 156/73 05/18/19 16:00 61 05/18/19 16:00 97.7 58 20 156/73 (100) 96 05/18/19 13:05 161/78 05/18/19 13:05 70 161/78 05/18/19 12:00 98.0 64 21 160/78 (105) 97 05/18/19 12:00 70 05/18/19 09:28 70 155/87 05/18/19 09:00 Room Air 05/18/19 08:00 97.7 78 22 130/80 (97) 99 05/18/19 07:40 78 05/18/19 06:36 155/87 05/18/19 04:00 97.6 74 18 153/82 (105) 98 05/18/19 04:00 70 05/18/19 00:00 99.6 91 20 140/77 (98) 97 05/18/19 00:00 94 05/17/19 21:20 159/79 05/17/19 21:00 Room Air Intake and Output 05/17/19 05/18/19 19:00 07:00 Intake Total 700 ml 500 ml Output Total 1000 ml 800 ml Balance -300 ml -300 ml Intake Oral 700 ml 500 ml Output Urine Total 1000 ml 800 ml Height (Feet): 5 Height (Inches): 8.00 Weight (Pounds): 154 Cardiovascular: normal rate Respiratory/Chest: lungs clear Abdomen: soft Les Tse MD May 18, 2019 20:57
--- NOTE | 2019-05-18 22:30 | NUR ---
NURSE NOTES: Given med, friend visiting late is leaving shortly. given pt snack before bedtime. tolerated up ad cristiane to bathroom. pt refused to use assisted device. VSS
[2019-05-19] VITALS: BP 117/66
[2019-05-19 04:00] VITALS: BP 131/71
[2019-05-19] MEDS: HydrALAZINE 50mg tab ORAL SCH ×2 (06:08→14:01)
[2019-05-19] MEDS: NovoLOG Insulin Flexpen SUBQ SCH ×2 (06:30→11:30)
[2019-05-19 07:26] LABS: EOSINOPHILS % (AUTO) 4.2 % (0.0-3.0); HEMATOCRIT 46.3 % (42.0-52.0); HEMOGLOBIN 15.8 G/DL (14.2-18.0); LYMPHOCYTES % (AUTO) 33.5 % (20.0-45.0); MEAN CORPUSCULAR VOLUME 88 FL (80-99); MONOCYTES % (AUTO) 7.7 % (1.0-10.0); NEUTROPHILS % (AUTO) 52.6 % (45.0-75.0); PLATELET COUNT 196 K/UL (150-450); RED BLOOD COUNT 5.24 M/UL (4.70-6.10); RED CELL DISTRIBUTION WIDTH 12.7 % (11.6-14.8); WHITE BLOOD COUNT 4.5 K/UL (4.8-10.8)
--- NOTE | 2019-05-19 07:35 | NUR ---
HAND-OFF: Report given to charge nurse SHAHRAM Guerra.
[2019-05-19 08:02] VITALS: BP 138/102
[2019-05-19 08:11] LABS: ALANINE AMINOTRANSFERASE 23 U/L (12-78); ALBUMIN 3.4 G/DL (3.4-5.0); ALBUMIN/GLOBULIN RATIO 0.8 (1.0-2.7); ALKALINE PHOSPHATASE 84 U/L (46-116); ANION GAP 10 mmol/L (5-15); ASPARTATE AMINO TRANSFERASE 15 U/L (15-37); BILIRUBIN,TOTAL 0.3 MG/DL (0.2-1.0); BLOOD UREA NITROGEN 42 mg/dL (7-18); CALCIUM 9.4 MG/DL (8.5-10.1); CARBON DIOXIDE 25 MMOL/L (21-32); CHLORIDE 103 MMOL/L (98-107); POTASSIUM 5.1 MMOL/L (3.5-5.1); SODIUM 138 MMOL/L (136-145)
--- NOTE | 2019-05-19 08:20 | NUR ---
received pt sitting up in the side of the bed, alert and oriented, no c/o pain, not in distress.
[2019-05-19] MEDS: Propranolol 10mg tab ORAL SCH ×2 (08:32→12:29)
[2019-05-19] MEDS: Docusate 100mg cap ORAL SCH (08:35)
[2019-05-19] MEDS: Enoxaparin 40mg Inj SUBQ SCH (08:40)
--- NOTE | 2019-05-19 09:30 | NUR ---
NURSE NOTES: Received pt from CN FE, Pt is awake and alert, pt is in RA, no SOB or acute respiratory distress noted. pt has intact iv access RFA 22G SL. Pt is on continues heart monitoring. all needs attended, bed is locked and is in the lowest position, call light within easy reach. will continue to monitor.
--- NOTE | 2019-05-19 10:04 | NUR ---
*-* DISCHARGE PLANNING *-* PATIENT HAS BEEN REFERRED TO: [facility] P: [phone] F; [phone]
[2019-05-19] MEDS ORDERED: ROCEPHIN 11 GM/50 ML IVPB (10:15)
--- NOTE | 2019-05-19 11:38 | Cardiac Electrophysiology PN ---
Assessment/Plan Assessment/Plan 1. Sinus Tachycardia. No evidence of SVT or atrial fibrillation. The patient is on Inderal 10 mg three times daily that will be continued. This patient has history of hyperthyroidism. The patient already ruled out for myocardial infarction. His T4 and T3 within normal range, however, his TSH is less than 0.01. EF 65% 2. History of hypertension, on hydralazine 50 mg every 8 hours and Inderal 10 mg three times daily. 3. Shortness of breath. Further evaluation by Dr. Witt. His hypoxemia has resolved, V/Q scan shows low probability. 4. Diabetes. 5. Prior CVA. 6. Marijuana use. KYAW RN Subjective Subjective No CP or SOB. DC back to [facility] today pending Objective Last 24 Hour Vital Signs Date Time Temp Pulse Resp B/P (MAP) Pulse Ox O2 Delivery O2 Flow Rate FiO2 05/19/19 09:30 Room Air 05/19/19 08:32 82 138/102 05/19/19 08:02 98.6 82 20 138/102 (114) 91 82 05/19/19 08:00 95 05/19/19 06:08 131/71 05/19/19 04:00 97.9 74 16 131/71 (91) 97 05/19/19 04:00 68 05/19/19 00:00 64 05/19/19 00:00 98.6 56 16 117/66 (83) 98 05/18/19 22:29 151/77 05/18/19 21:00 Room Air 05/18/19 21:00 65 05/18/19 20:00 97.0 73 16 151/77 (101) 98 05/18/19 17:17 58 156/73 05/18/19 16:00 61 05/18/19 16:00 97.7 58 20 156/73 (100) 96 05/18/19 13:05 161/78 05/18/19 13:05 70 161/78 05/18/19 12:00 98.0 64 21 160/78 (105) 97 05/18/19 12:00 70 Intake and Output 05/18/19 05/19/19 19:00 07:00 Intake Total 420 ml Output Total 800 ml Balance 420 ml -800 ml Intake Oral 420 ml Output Urine Total 800 ml # Voids 2 Laboratory Tests Test 05/19/19 06:45 White Blood Count 4.5 K/UL (4.8-10.8) L Red Blood Count 5.24 M/UL (4.70-6.10) Hemoglobin 15.8 G/DL (14.2-18.0) Hematocrit 46.3 % (42.0-52.0) Mean Corpuscular Volume 88 FL (80-99) Mean Corpuscular Hemoglobin 30.2 PG (27.0-31.0) Mean Corpuscular Hemoglobin Concent 34.2 G/DL (32.0-36.0) Red Cell Distribution Width 12.7 % (11.6-14.8) Platelet Count 196 K/UL (150-450) Mean Platelet Volume 7.7 FL (6.5-10.1) Neutrophils (%) (Auto) 52.6 % (45.0-75.0) Lymphocytes (%) (Auto) 33.5 % (20.0-45.0) Monocytes (%) (Auto) 7.7 % (1.0-10.0) Eosinophils (%) (Auto) 4.2 % (0.0-3.0) H Basophils (%) (Auto) 2.0 % (0.0-2.0) Sodium Level 138 MMOL/L (136-145) Potassium Level 5.1 MMOL/L (3.5-5.1) Chloride Level 103 MMOL/L (98-107) Carbon Dioxide Level 25 MMOL/L (21-32) Anion Gap 10 mmol/L (5-15) Blood Urea Nitrogen 42 mg/dL (7-18) H Creatinine 2.0 MG/DL (0.55-1.30) H Estimat Glomerular Filtration Rate 33.6 mL/min (>60) Glucose Level 133 MG/DL (74-106) H Calcium Level 9.4 MG/DL (8.5-10.1) Phosphorus Level 4.0 MG/DL (2.5-4.9) Magnesium Level 1.8 MG/DL (1.8-2.4) Total Bilirubin 0.3 MG/DL (0.2-1.0) Aspartate Amino Transf (AST/SGOT) 15 U/L (15-37) Alanine Aminotransferase (ALT/SGPT) 23 U/L (12-78) Alkaline Phosphatase 84 U/L (46-116) C-Reactive Protein, Quantitative 0.7 mg/dL (0.00-0.90) Pro-B-Type Natriuretic Peptide 265 pg/mL (0-125) H Total Protein 7.5 G/DL (6.4-8.2) Albumin 3.4 G/DL (3.4-5.0) Globulin 4.1 g/dL Albumin/Globulin Ratio 0.8 (1.0-2.7) L Objective HEAD AND NECK: No JVD. LUNGS: Clear. CARDIOVASCULAR: Regular S1 and S2 with no gallop or murmur. ABDOMEN: Soft and nontender. EXTREMITIES: No pitting edema. Shakeel Morgan MD May 19, 2019 11:38
[2019-05-19 12:00] VITALS: BP 131/64
[2019-05-19] MEDS: HYDROcodone/Acetamin 5/325 tab ORAL PRN (12:30)
--- NOTE | 2019-05-19 12:47 | NUR ---
TAILMAN NOTE Pt requested to meet w/ BARRINGTON. PT is scheduled to be discharged to [facility] on [address] today. Pt requested SW to inform his DC to his daughter Leigh Lindsey who is living in [facility] [phone]. SW informed pt's DC to Leigh Lindsey. Pt states his PCP is Dr. Kellogg at [facility]. Pt also requested to inform pt's DC to the PCP's office. BARRINGTON attempted to call Dr. Kellogg' office [phone], call was not answered and left a vm. Signed: 05/19/19 at 1249 by LELAND FERRIS <Co-Signature Required>
--- NOTE | 2019-05-19 13:52 | Pulmonology Progress Note ---
Assessment/Plan Assessment/Plan IMPRESSION: 1. Hypoxemia.now resolved 2. Altered mental status. 3. Marijuana use. 4. Diabetes mellitus. 5. Previous CVA. DISCUSSION: VQ scan low probability. 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 Dc planning BP control per cardiology Pedro Witt M.D. Subjective Interval Events: None new Constitutional: Reports: no symptoms HEENT: Repors: no symptoms Respiratory: Reports: no symptoms Cardiovascular: Reports: no symptoms Gastrointestinal/Abdominal: Reports: no symptoms Allergies: Coded Allergies: No Known Allergies (Unverified , 05/12/19) Objective Last 24 Hour Vital Signs Date Time Temp Pulse Resp B/P (MAP) Pulse Ox O2 Delivery O2 Flow Rate FiO2 05/19/19 12:29 69 131/64 05/19/19 12:00 97.8 69 20 131/64 (86) 97 05/19/19 11:46 67 05/19/19 09:30 Room Air 05/19/19 08:32 82 138/102 05/19/19 08:02 98.6 82 20 138/102 (114) 91 82 05/19/19 08:00 95 05/19/19 06:08 131/71 05/19/19 04:00 97.9 74 16 131/71 (91) 97 05/19/19 04:00 68 05/19/19 00:00 64 05/19/19 00:00 98.6 56 16 117/66 (83) 98 05/18/19 22:29 151/77 05/18/19 21:00 Room Air 05/18/19 21:00 65 05/18/19 20:00 97.0 73 16 151/77 (101) 98 05/18/19 17:17 58 156/73 05/18/19 16:00 61 05/18/19 16:00 97.7 58 20 156/73 (100) 96 Intake and Output 05/18/19 05/19/19 19:00 07:00 Intake Total 420 ml Output Total 800 ml Balance 420 ml -800 ml Intake Oral 420 ml Output Urine Total 800 ml # Voids 2 General Appearance: no acute distress HEENT: normocephalic Respiratory/Chest: chest wall non-tender, lungs clear Cardiovascular: normal peripheral pulses, normal rate Abdomen: normal bowel sounds Laboratory Tests 05/19/19 06:45: White Blood Count 4.5L, Red Blood Count 5.24, Hemoglobin 15.8, Hematocrit 46.3, Mean Corpuscular Volume 88, Mean Corpuscular Hemoglobin 30.2, Mean Corpuscular Hemoglobin Concent 34.2, Red Cell Distribution Width 12.7, Platelet Count 196, Mean Platelet Volume 7.7, Neutrophils (%) (Auto) 52.6, Lymphocytes (%) (Auto) 33.5, Monocytes (%) (Auto) 7.7, Eosinophils (%) (Auto) 4.2H, Basophils (%) (Auto ) 2.0, Sodium Level 138, Potassium Level 5.1, Chloride Level 103, Carbon Dioxide Level 25, Anion Gap 10, Blood Urea Nitrogen 42H, Creatinine 2.0H, Estimat Glomerular Filtration Rate 33.6, Glucose Level 133H, Calcium Level 9.4, Phosphorus Level 4.0, Magnesium Level 1.8, Total Bilirubin 0.3, Aspartate Amino Transf (AST/SGOT) 15, Alanine Aminotransferase (ALT/SGPT) 23, Alkaline Phosphatase 84, C-Reactive Protein, Quantitative 0.7, Pro-B-Type Natriuretic Peptide 265H, Total Protein 7.5, Albumin 3.4, Globulin 4.1, Albumin/Globulin Ratio 0.8L Current Medications Medications (Trade) Dose Ordered Sig/Ruddy Route PRN Reason Start Time Stop Time Status Last Admin Dose Admin Acetaminophen/ Hydrocodone Bitart (Hamer 5/325) 1 tab Q6H PRN ORAL For Pain 05/13/19 13:40 05/20/19 13:39 05/19/19 12:30 Allopurinol (allopurinoL) 300 mg DAILY ORAL 05/15/19 09:00 06/14/19 08:59 05/19/19 08:32 Dextrose (Dextrose 50%) 25 ml Q30M PRN IV Hypoglycemia 05/13/19 07:15 06/12/19 07:14 Dextrose (Dextrose 50%) 50 ml Q30M PRN IV Hypoglycemia 05/13/19 07:15 06/12/19 07:14 Docusate Sodium (Colace) 100 mg TWICE A DAY ORAL 05/13/19 18:00 06/12/19 17:59 05/19/19 08:35 Enoxaparin Sodium (Lovenox) 40 mg DAILY SUBQ 05/13/19 09:00 06/12/19 08:59 05/19/19 08:40 Hydralazine HCl (Apresoline) 25 mg Q4H PRN ORAL bp over 160 syst 05/13/19 14:45 06/12/19 14:44 05/15/19 04:39 Hydralazine HCl (Apresoline) 50 mg Q8HR ORAL 05/18/19 14:00 06/13/19 13:59 05/19/19 06:08 Insulin Aspart (NovoLOG) BEFORE MEALS AND HS SUBQ 05/13/19 11:30 06/12/19 11:29 05/18/19 20:46 Pantoprazole (Protonix) 40 mg DAILY ORAL 05/14/19 09:00 06/13/19 08:59 05/19/19 08:32 Propranolol HCl (Inderal) 10 mg THREE TIMES A DAY ORAL 05/18/19 09:00 06/17/19 08:59 05/19/19 12:29 Pedro Witt MD May 19, 2019 13:52
[2019-05-19 14:01] VITALS: BP 131/64
--- NOTE | 2019-05-19 14:10 | Nephrology Progress Note ---
Assessment/Plan Problem List: (1) Diabetic nephropathy (2) HTN (hypertension) (3) Chronic kidney disease (CKD) Assessment: GFR 35 (4) Acute metabolic encephalopathy Assessment Acute encephalopathy is most likely metabolic due to marijuana and alcohol. Elevated creatinine most likely chronic kidney disease as a result of history of hypertension and diabetes mellitus. Acute respiratory failure with hypoxia on presentation to emergency room. CO2 retention DM Proteinuria: Nephropathy. Plan add allopurinol- adjust bp meds- Optimize pulmonary status Keep BP and BS in check Avoid nephrotoxics per orders Subjective ROS Limited/Unobtainable: No Constitutional: Reports: malaise Objective Objective Last 24 Hour Vital Signs Date Time Temp Pulse Resp B/P (MAP) Pulse Ox O2 Delivery O2 Flow Rate FiO2 05/19/19 14:01 131/64 05/19/19 12:29 69 131/64 05/19/19 12:00 97.8 69 20 131/64 (86) 97 05/19/19 11:46 67 05/19/19 09:30 Room Air 05/19/19 08:32 82 138/102 05/19/19 08:02 98.6 82 20 138/102 (114) 91 82 05/19/19 08:00 95 05/19/19 06:08 131/71 05/19/19 04:00 97.9 74 16 131/71 (91) 97 05/19/19 04:00 68 05/19/19 00:00 64 05/19/19 00:00 98.6 56 16 117/66 (83) 98 05/18/19 22:29 151/77 05/18/19 21:00 Room Air 05/18/19 21:00 65 05/18/19 20:00 97.0 73 16 151/77 (101) 98 05/18/19 17:17 58 156/73 05/18/19 16:00 61 05/18/19 16:00 97.7 58 20 156/73 (100) 96 Intake and Output 05/18/19 05/19/19 19:00 07:00 Intake Total 420 ml Output Total 800 ml Balance 420 ml -800 ml Intake Oral 420 ml Output Urine Total 800 ml # Voids 2 Laboratory Tests 05/19/19 06:45: White Blood Count 4.5L, Red Blood Count 5.24, Hemoglobin 15.8, Hematocrit 46.3, Mean Corpuscular Volume 88, Mean Corpuscular Hemoglobin 30.2, Mean Corpuscular Hemoglobin Concent 34.2, Red Cell Distribution Width 12.7, Platelet Count 196, Mean Platelet Volume 7.7, Neutrophils (%) (Auto) 52.6, Lymphocytes (%) (Auto) 33.5, Monocytes (%) (Auto) 7.7, Eosinophils (%) (Auto) 4.2H, Basophils (%) (Auto ) 2.0, Sodium Level 138, Potassium Level 5.1, Chloride Level 103, Carbon Dioxide Level 25, Anion Gap 10, Blood Urea Nitrogen 42H, Creatinine 2.0H, Estimat Glomerular Filtration Rate 33.6, Glucose Level 133H, Calcium Level 9.4, Phosphorus Level 4.0, Magnesium Level 1.8, Total Bilirubin 0.3, Aspartate Amino Transf (AST/SGOT) 15, Alanine Aminotransferase (ALT/SGPT) 23, Alkaline Phosphatase 84, C-Reactive Protein, Quantitative 0.7, Pro-B-Type Natriuretic Peptide 265H, Total Protein 7.5, Albumin 3.4, Globulin 4.1, Albumin/Globulin Ratio 0.8L Height (Feet): 5 Height (Inches): 8.00 Weight (Pounds): 154 General Appearance: no apparent distress Cardiovascular: normal rate Respiratory/Chest: decreased breath sounds Abdomen: soft Objective no change Jose Luis Lin MD May 19, 2019 14:10
--- NOTE | 2019-05-19 14:18 | NUR ---
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
--- NOTE | 2019-05-19 15:07 | NUR ---
NURSE NOTES: pt has discharge order, all D/C assessments and instructions done and pt verbally confirmed to understand all. pt is stable, V/S stable, all belongings are with pt, report given to SNF RN LUCIANO, they know about iv ATB and asked to keep iv access and done. pt's daughter HYACINTH is aware. pt doesn't remember the name and dose and frequency of home meds, Dr YOON notified, no new order to RN. no complain of pain at this moment. ambulance is here to pick pt up.
--- NOTE | 2019-05-19 17:00 | Hematology/Onc Progress Note ---
Assessment/Plan Assessment/Plan Assessment and Recs: # Altered mental status - has periventricular deep white matter low-attenuation , probably due to chronic microvascular ischemic changes, but could also indicate transependymal flow of CSF i the setting of hydrocephalus. 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 --> cxr completed is neg --> now more comfortable, is on o2 --> less likely PE, without tachycardia, no major tachypnea --> per pulm --> lung vq reviewed, low probability of pe # Hypertension --> prn antihtn meds # Alden on Ckd --> as per renal --> cr trend Appreciate data center consultant care and dw RN Subjective Allergies: Coded Allergies: No Known Allergies (Unverified , 05/12/19) Subjective 05/14: sdu, alert, lung vq reviewed, low probability of pe, on room air 05/15: no events, labs reviewed, no bleeding, labs ordered per renal, appreciated 05/17: alert and oriented, breathing well on ra, seen by pulma nd renal 05/18: no major changes, no bleeding, labs noted, now improved, dw Dr. Chacon 05/19: awake and alert, no acute events, dc planning Objective Objective Last 24 Hour Vital Signs Date Time Temp Pulse Resp B/P (MAP) Pulse Ox O2 Delivery O2 Flow Rate FiO2 05/19/19 14:01 131/64 05/19/19 12:29 69 131/64 05/19/19 12:00 97.8 69 20 131/64 (86) 97 05/19/19 11:46 67 05/19/19 09:30 Room Air 05/19/19 08:32 82 138/102 05/19/19 08:02 98.6 82 20 138/102 (114) 91 82 05/19/19 08:00 95 05/19/19 06:08 131/71 05/19/19 04:00 97.9 74 16 131/71 (91) 97 05/19/19 04:00 68 05/19/19 00:00 64 05/19/19 00:00 98.6 56 16 117/66 (83) 98 05/18/19 22:29 151/77 05/18/19 21:00 Room Air 05/18/19 21:00 65 05/18/19 20:00 97.0 73 16 151/77 (101) 98 05/18/19 17:17 58 156/73 05/18/19 16:00 61 05/18/19 16:00 97.7 58 20 156/73 (100) 96 05/18/19 13:05 161/78 05/18/19 13:05 70 161/78 05/18/19 12:00 98.0 64 21 160/78 (105) 97 05/18/19 12:00 70 05/18/19 09:28 70 155/87 05/18/19 09:00 Room Air 05/18/19 08:00 97.7 78 22 130/80 (97) 99 05/18/19 07:40 78 05/18/19 06:36 155/87 05/18/19 04:00 97.6 74 18 153/82 (105) 98 05/18/19 04:00 70 05/18/19 00:00 99.6 91 20 140/77 (98) 97 05/18/19 00:00 94 05/17/19 21:20 159/79 05/17/19 21:00 Room Air 05/17/19 20:00 82 05/17/19 20:00 98.8 77 18 157/79 (105) 97 Intake and Output 05/18/19 05/19/19 19:00 07:00 Intake Total 420 ml Output Total 800 ml Balance 420 ml -800 ml Intake Oral 420 ml Output Urine Total 800 ml # Voids 2 Labs Test 05/19/19 06:45 White Blood Count 4.5 K/UL (4.8-10.8) Red Blood Count 5.24 M/UL (4.70-6.10) Hemoglobin 15.8 G/DL (14.2-18.0) Hematocrit 46.3 % (42.0-52.0) Mean Corpuscular Volume 88 FL (80-99) Mean Corpuscular Hemoglobin 30.2 PG (27.0-31.0) Mean Corpuscular Hemoglobin Concent 34.2 G/DL (32.0-36.0) Red Cell Distribution Width 12.7 % (11.6-14.8) Platelet Count 196 K/UL (150-450) Mean Platelet Volume 7.7 FL (6.5-10.1) Neutrophils (%) (Auto) 52.6 % (45.0-75.0) Lymphocytes (%) (Auto) 33.5 % (20.0-45.0) Monocytes (%) (Auto) 7.7 % (1.0-10.0) Eosinophils (%) (Auto) 4.2 % (0.0-3.0) Basophils (%) (Auto) 2.0 % (0.0-2.0) Sodium Level 138 MMOL/L (136-145) Potassium Level 5.1 MMOL/L (3.5-5.1) Chloride Level 103 MMOL/L (98-107) Carbon Dioxide Level 25 MMOL/L (21-32) Anion Gap 10 mmol/L (5-15) Blood Urea Nitrogen 42 mg/dL (7-18) Creatinine 2.0 MG/DL (0.55-1.30) Estimat Glomerular Filtration Rate 33.6 mL/min (>60) Glucose Level 133 MG/DL (74-106) Calcium Level 9.4 MG/DL (8.5-10.1) Phosphorus Level 4.0 MG/DL (2.5-4.9) Magnesium Level 1.8 MG/DL (1.8-2.4) Total Bilirubin 0.3 MG/DL (0.2-1.0) Aspartate Amino Transf (AST/SGOT) 15 U/L (15-37) Alanine Aminotransferase (ALT/SGPT) 23 U/L (12-78) Alkaline Phosphatase 84 U/L (46-116) C-Reactive Protein, Quantitative 0.7 mg/dL (0.00-0.90) Pro-B-Type Natriuretic Peptide 265 pg/mL (0-125) Total Protein 7.5 G/DL (6.4-8.2) Albumin 3.4 G/DL (3.4-5.0) Globulin 4.1 g/dL Albumin/Globulin Ratio 0.8 (1.0-2.7) Height (Feet): 5 Height (Inches): 8.00 Weight (Pounds): 154 Objective Physical Exam: Vitals: reviewed General: NAD HEENT: nc, at Neck: supple Chest: clear breath sounds bilaterally Cardiovascular: RRR, no s3, s4 Abdomen: soft, nontender, nd Extremities: no cce, normal range of motion Neuro: alert and oriented Shahid Laguerre MD May 19, 2019 17:00
--- NOTE | 2019-05-21 08:20 | Discharge Summary ---
Discharge Summary Discharge Summary _ DATE OF ADMISSION: 05/13/2019 DATE OF DISCHARGE: 05/19/2019 DISCHARGED BY: Dr. Tse REASON FOR ADMISSION: 68 years old male with past medical history of CVA , diabetes mellitus, presented with chief complaint of altered mental status and hypoxia. Patient apparently was at his friend's house and had one alcoholic drink. He became unresponsive, and friend subsequently called 911. Per paramedics, patient was unresponsive until get into the ambulance, but then he woke up. No reported seizure activity . Patient noted to be hypoxic , but he denied being short of breath. No chest pain , no history of seizure. Patient was placed on supplemental oxygen. Initial ABG on 100% nonrebreathing mask revealed hypoxia. Patient presented with acute respiratory failure with hypoxia. Later oxygen was removed and pulse oximetry was stable. Laboratory work-up was unremarkable. Chest x-ray was negative for any acute cardiopulmonary pathology. CT of the head revealed no acute intracranial pathology, but showed evidence of old right pontine lacunar infarct. BUN 35, creatinine 2.2. Lovenox was given in the emergency department. VQ scan was ordered. Troponin was negative, pro BNP 245. EKG revealed sinus rhythm, no acute ischemic changes. Urine toxicology screen was positive for marijuana. Serum alcohol level was 7. Patient subsequently admitted to monitored floor for further management CONSULTANTS: switch engineer Dr. Casillas pulmonary Dr. Witt medical review specialist Dr. Lin imaging nurse/oncologist Dr. Laguerre [facility] COURSE: Patient admitted to telemetry floor. VQ scan revealed low probability of pulmonary embolism. Echocardiogram revealed preserved ejection fraction of 60 to 65% with mild left ventricular hypertrophy. No evidence of wall motion abnormality. Right ventricular systolic pressure of 22. Mild mitral regurgitation. Blood pressure was managed with hydralazine and Inderal. Patient demonstrated sinus tachycardia, but no evidence of SVT or atrial fibrillation. Patient was on beta-adelia /Inderal. Patient had history of hyperthyroidism. T4 and T3 within normal limits , TSH less than 001. Follow up with thyroid function test as outpatient. Serial troponin were negative. EKG revealed no acute ischemic changes. Patient was ruled out for acute myocardial infarction. Renal parameters and electrolytes were closely monitored. Encephalopathy was most likely mild metabolic, due to marijuana and alcohol. Patient had likely had a chronic kidney disease as per medical review specialist, as a result of hypertension and diabetes mellitus. Nephrotoxins were avoided. Renal parameters and electrolytes were closely monitored, and electrolytes corrected as needed. Allopurinol was added by medical review specialist. Bowel regimen instituted. Blood sugar was managed with sliding scale of insulin. Hemoglobin A1c 6.7 . Supportive care provided. DVT prophylaxis provided. Patient clinically stabilized. Placement was arranged to custodial facility for continuation of care . Patient was stable for transfer. FINAL DIAGNOSES: Acute hypoxemic respiratory failure -resolved Acute metabolic encephalopathy/ due to marijuana and alcohol- resolved Sinus tachycardia-resolved Chronic kidney disease Diabetic nephropathy History of hyperthyroidism History of CVA Diabetes mellitus Marijuana use DISCHARGE MEDICATIONS: See Medication Reconciliation list. DISCHARGE INSTRUCTIONS: Patient was discharged to the custodial facility. Follow up with medical doctor at the facility. I have been assigned to dictate discharge summary for this account. I was not involved in the patient's management. Ariana Shah NP May 21, 2019 08:20
== END 2019-05-19 15:20 | DRG 189 ==
LOC: EDBD 22:34 → EMR 22:50 → 2W 05-13 00:48 → EDBEDREQ 05-13 01:01 → 2E 05-18 13:30
DX: J96.01 Acute respiratory failure with hypoxia (principal); G92 Toxic encephalopathy; N17.9 Acute kidney failure, unspecified; F10.99 Alcohol use, unspecified with unspecified alcohol-induced disorder; I12.9 Hypertensive chronic kidney disease with stage 1 through stage 4 chronic kidney disease, or unspecified chronic kidney disease; N18.9 Chronic kidney disease, unspecified; R00.0 Tachycardia, unspecified; E11.22 Type 2 diabetes mellitus with diabetic chronic kidney disease; Z86.73 Personal history of transient ischemic attack (TIA), and cerebral infarction without residual deficits; F12.99 Cannabis use, unspecified with unspecified cannabis-induced disorder
CPT/HCPCS: 36415; 36600; 70450; 71045; 78579; 78580; 80048; 80053; 80061; 80307; 81003; 82746; 82803; 82962; 82977; 83036; 83735; 83880; 84100; 84439; 84443; 84481; 84484; 84550; 85025; 86140; 93005; 93306; 96372; 99291; A9503; G0480; J1815